=== PATIENT | female | born 1955 | race Caucasian/White ===

== ENCOUNTER → 2016-04-07 | Outpatient (CLI) | payer MEDICARE, OTHER ==
--- NOTE | 2016-04-08 10:36 | MM ---
Reason for exam: screening (asymptomatic). Last mammogram was performed 1 year and 10 months ago. History: Family history of premenopausal breast cancer in sister. Physical Findings: A clinical breast exam by your physician is recommended on an annual basis and results should be correlated with mammographic findings. MG Screening Mammo w CAD Bilateral CC and MLO view(s) were taken. Prior study comparison: June 18, 2014, bilateral MG screening mammo w CAD. July 02, 2004, bilateral screening mammogram. There are scattered fibroglandular densities. No significant changes when compared with prior studies. ASSESSMENT: Benign, BI-RAD 2 RECOMMENDATION: Routine screening mammogram of both breasts in 1 year.
== END | disposition home or self-care (01) ==
LOC: RADMAMWWP 14:40
PROVIDERS: ATTEND Family Medicine
DX: Z12.31 Encounter for screening mammogram for malignant neoplasm of breast (principal)

== ENCOUNTER → 2016-04-12 | Outpatient (CLI) | payer MEDICARE ==
[2016-04-12 13:42] VITALS: BP 162/82; PULSE 70; RESP 20; TEMP 97.6; BMI 33.3
--- NOTE | 2016-04-20 14:27 | P.BASOAP ---
Subjective Principal diagnosis: Morbid obesity Patient doing well. No nausea or vomiting. No heartburn. Denies abdominal pain. Excellent weight loss. 15 pounds since her last visit. Her lab work was reviewed. Her vitamin A and her vitamin B1 are slightly low. Supplements have been prescribed. Some belching at times. Activity level still somewhat poor because of her chronic knee pain. Objective - Vital Signs Vital signs: Vital Signs Temp 97.6 F 04/12/16 13:28 Pulse 70 04/12/16 13:28 Resp 20 04/12/16 13:28 BP 162/82 04/12/16 13:28 Pulse Ox Intake & Output 04/11/16 04/12/16 04/12/16 18:59 06:59 18:59 Weight 80.785 kg - Exam Abdomen: Soft, nontender, nondistended Assessment/Plan (1) Morbid obesity Narrative/Plan: Vitamin supplementation as prescribed. Continue diet and increased activity. Follow-up 6 weeks. Plan: Date: 04/12/16 Initial Weight: 112.661 kg Initial BMI: 46.5 Current Weight: 80.785 kg Current BMI: 33.3 Type of Surgery: Total Volume in Band: Previous Volume: Volume Removed: Volume Added: Band Size:
== END | disposition home or self-care (01) ==
LOC: BARWHC3 13:15
PROVIDERS: ATTEND Surgery
DX: E66.01 Morbid (severe) obesity due to excess calories (principal); E51.9 Thiamine deficiency, unspecified; E50.9 Vitamin A deficiency, unspecified
CPT/HCPCS: 99211

== ENCOUNTER → 2016-05-31 | Outpatient (CLI) | payer MEDICARE, OTHER ==
[2016-05-31 13:14] VITALS: BP 143/70; PULSE 73; RESP 20; TEMP 97.6; BMI 32.4
--- NOTE | 2016-05-31 14:01 | P.BASOAP ---
Subjective Principal diagnosis: Morbid obesity Patient doing well today. She's lost another 5-6 pounds. This is 6 weeks from her last visit. Still having occasional belching. No nausea or vomiting. No longer issues. She is due for six-month lab work next month. She is to see the dietitian today. Objective - Vital Signs Vital signs: Vital Signs Temp 97.6 F 05/31/16 13:08 Pulse 73 05/31/16 13:08 Resp 20 05/31/16 13:08 BP 143/70 05/31/16 13:08 Pulse Ox Intake & Output 05/30/16 05/31/16 05/31/16 18:59 06:59 18:59 Weight 78.608 kg - Exam Abdomen: Soft, nontender, nondistended Assessment/Plan (1) Morbid obesity Narrative/Plan: Continue dietary and exercise regimen. Recheck lab work next month. Dietitian evaluation today. Plan: Date: 05/31/16 Initial Weight: 112.661 kg Initial BMI: 46.5 Current Weight: 78.608 kg Current BMI: 32.4 Type of Surgery: Total Volume in Band: Previous Volume: Volume Removed: Volume Added: Band Size:
== END | disposition home or self-care (01) ==
LOC: BARWHC3 12:50
PROVIDERS: ATTEND Surgery
DX: Z71.3 Dietary counseling and surveillance (principal); E66.01 Morbid (severe) obesity due to excess calories; R14.2 Eructation
CPT/HCPCS: 97803; G0463; 99211

== ENCOUNTER → 2016-07-12 | Outpatient (CLI) | payer MEDICARE, OTHER ==
[2016-07-12 13:08] VITALS: BP 164/93; PULSE 73; TEMP 98.2; BMI 33.0
--- NOTE | 2016-07-12 13:48 | P.BASOAP ---
Subjective Principal diagnosis: Morbid obesity Patient had a small weight gain of 3 pounds. She blames this on increased protein bars. Her belching is improved. No change in the degree of hunger. She is due for blood work today. Objective - Vital Signs Vital signs: Vital Signs Temp 98.2 F 07/12/16 13:05 Pulse 73 07/12/16 13:05 Resp BP 164/93 07/12/16 13:05 Pulse Ox Intake & Output 07/11/16 07/12/16 07/12/16 18:59 06:59 18:59 Weight 79.968 kg - Exam Abdomen: Soft, nontender, nondistended Assessment/Plan (1) Morbid obesity Narrative/Plan: Continue when necessary antiacid therapy. Check 6 months lab work today. Continue exercise and dietary regimen. Plan: Date: 07/12/16 Initial Weight: 112.661 kg Initial BMI: 46.5 Current Weight: 79.968 kg Current BMI: 33.0 Type of Surgery: Total Volume in Band: Previous Volume: Volume Removed: Volume Added: Band Size:
[2016-07-12 14:22] LABS: ALT 60 U/L (9-52); AST 66 U/L (14-36); Alkaline Phosphatase 115 U/L (38-126); Anion Gap 7 mmol/L; Blood Urea Nitrogen 18 mg/dL (7-17); Calcium 9.7 mg/dL (8.4-10.2); Carbon Dioxide 30 mmol/L (22-30); Chloride 105 mmol/L (98-107); Glucose 79 mg/dL (74-99); Iron 93 ug/dL (37-170); Non-African American GFR(MDRD) >60 (>60 ml/min/1.73 sqM); Potassium 4.9 mmol/L (3.5-5.1); Sodium 142 mmol/L (137-145); Total Bilirubin 0.7 mg/dL (0.2-1.3); Total Protein 6.6 g/dL (6.3-8.2)
[2016-07-12 14:40] LABS: CH 29.7; CHCM 32.7; HCT 37.5 % (34.0-46.0); HDW 2.48; HGB 12.5 gm/dL (11.4-16.0); MCH 30.5 pg (25.0-35.0); MCHC 33.3 g/dL (31.0-37.0); MCV 91.4 fL (80.0-100.0); RBC 4.11 m/uL (3.80-5.40); RDW 13.4 % (11.5-15.5); WBC 7.8 k/uL (3.8-10.6)
[2016-07-12 15:29] LABS: Vitamin B12 228 pg/mL (239-931)
== END | disposition home or self-care (01) ==
LOC: BARWHC3 12:53
PROVIDERS: ATTEND Surgery
DX: E66.01 Morbid (severe) obesity due to excess calories (principal); E55.9 Vitamin D deficiency, unspecified
CPT/HCPCS: 80053; 82607; 82746; 83540; 85027; 82306; G0463; 99211

== ENCOUNTER → 2016-08-23 | Outpatient (CLI) | payer MEDICARE, OTHER ==
[2016-08-23 13:16] VITALS: BP 133/63; PULSE 73; TEMP 98.1; BMI 33.7
--- NOTE | 2016-08-23 16:09 | PN ---
DATE OF SERVICE: 08/23/2016 BARIATRIC PROGRESS NOTE CHIEF COMPLAINT: Morbid obesity. INTERVAL HISTORY: The patient did have a slight weight gain of 3-1/2 pounds. She denies dysphagia. No increased hunger. She still blames this on taking in too much protein bars; she says she has about 3 to 4 protein bars per day. She plans to drink more soups and believes that is going to have a positive outcome. The patient had her 6-month labs recently. Her vitamin D and her vitamin B12 are both slightly low. Her liver enzymes are slightly elevated and she plans to discuss this further with her primary care physician. PHYSICAL EXAM: ABDOMEN: Soft, nontender, nondistended. IMPRESSION: Morbid obesity. PLAN: 1. Follow up with PCP regarding elevated liver enzymes. 2. Vitamin B12 and vitamin D supplementation. 3. Follow up in the office in 6 weeks.
== END | disposition home or self-care (01) ==
LOC: BARWHC3 12:54
PROVIDERS: ATTEND Surgery
DX: E66.01 Morbid (severe) obesity due to excess calories (principal)
CPT/HCPCS: 99211

== ENCOUNTER → 2016-10-25 | Outpatient (CLI) | payer MEDICARE, OTHER ==
[2016-10-25 13:11] VITALS: BP 147/68; PULSE 63; TEMP 98; BMI 34.7
--- NOTE | 2016-10-25 14:49 | P.BASOAP ---
Subjective Principal diagnosis: Morbid obesity Patient had a slight weight gain this visit. Approximate 5 pounds. She still believes this is related to her ingesting 4-5 protein bars per day. She plans to take this out of her diet for the most part. She has lost a total of 65 pounds. She was told by her primary care physician that her liver enzyme elevation is stable and no further workup was required. Objective - Vital Signs Vital signs: Vital Signs Temp 98 F 10/25/16 13:10 Pulse 63 10/25/16 13:10 Resp BP 147/68 10/25/16 13:10 Pulse Ox Intake & Output 10/24/16 10/25/16 10/25/16 18:59 06:59 18:59 Weight 83.915 kg - Exam Abdomen: Soft, nontender, nondistended Assessment/Plan (1) Morbid obesity Narrative/Plan: Monitor protein and carbohydrates intake. Continue exercise regimen. Follow- up visit in 4-6 weeks and we'll check one year labs at that time. Plan: Date: 10/25/16 Initial Weight: 112.661 kg Initial BMI: 46.5 Current Weight: 83.915 kg Current BMI: 34.7 Type of Surgery: Total Volume in Band: Previous Volume: Volume Removed: Volume Added: Band Size:
== END | disposition home or self-care (01) ==
LOC: BARWHC3 12:49
PROVIDERS: ATTEND Surgery
DX: E66.01 Morbid (severe) obesity due to excess calories (principal)
CPT/HCPCS: 97803; G0463; 99211

== ENCOUNTER → 2016-12-13 | Outpatient (CLI) | payer MEDICARE, OTHER ==
[2016-12-13 14:15] VITALS: BP 159/85; PULSE 70; TEMP 98.4; BMI 36.8
[2016-12-13 15:48] LABS: AST 31 U/L (14-36); Anion Gap 8 mmol/L; Blood Urea Nitrogen 23 mg/dL (7-17); Calcium 9.7 mg/dL (8.4-10.2); Carbon Dioxide 29 mmol/L (22-30); Chloride 103 mmol/L (98-107); Glucose 83 mg/dL (74-99); Iron 128 ug/dL (37-170); Non-African American GFR(MDRD) >60 (>60 ml/min/1.73 sqM); Potassium 4.6 mmol/L (3.5-5.1); Sodium 140 mmol/L (137-145); Total Bilirubin 0.5 mg/dL (0.2-1.3); Total Protein 6.4 g/dL (6.3-8.2)
[2016-12-13 15:49] LABS: ALT 38 U/L (9-52); Alkaline Phosphatase 120 U/L (38-126); Vitamin B12 802 pg/mL (239-931)
[2016-12-13 16:27] LABS: CH 29.9; CHCM 33.3; HCT 39.6 % (34.0-46.0); HDW 2.45; HGB 13.3 gm/dL (11.4-16.0); MCH 30.2 pg (25.0-35.0); MCHC 33.5 g/dL (31.0-37.0); MCV 90.3 fL (80.0-100.0); Mean Platelet Volume 6.9; RBC 4.39 m/uL (3.80-5.40); RDW 12.5 % (11.5-15.5); WBC 6.8 k/uL (3.8-10.6)
== END ==
LOC: BARWHC3 13:10
PROVIDERS: ATTEND Surgery
DX: Z09 Encounter for follow-up examination after completed treatment for conditions other than malignant neoplasm (principal); Z98.84 Bariatric surgery status; E66.01 Morbid (severe) obesity due to excess calories; E55.9 Vitamin D deficiency, unspecified; K90.9 Intestinal malabsorption, unspecified
CPT/HCPCS: 84425; 80053; 82607; 83540; 85027; 82306; G0463; 99211

== ENCOUNTER → 2017-06-13 | Outpatient (CLI) | payer MEDICARE, OTHER ==
[2017-06-13 13:29] VITALS: BP 128/83; PULSE 69; RESP 16; TEMP 97.9; BMI 35.9
--- NOTE | 2017-06-13 16:32 | P.BASOAP ---
Subjective Progress Note Date: 06/13/17 Principal diagnosis: Morbid obesity Patient returns today for reevaluation. Her weight is actually increased by 2 pounds since her last visit. She has had more social issues going on at home. Her father is ill. She has had some issues with her eyesight also. She doesn' t believe she is eating much. She has mild reflux at times. She is not taking her antiacids. She says she may resume that. No vomiting. Activity is somewhat less lately. Objective - Vital Signs Vital signs: Vital Signs Temp 97.9 F 06/13/17 13:27 Pulse 69 06/13/17 13:27 Resp 16 06/13/17 13:27 BP 128/83 06/13/17 13:27 Pulse Ox Intake & Output 06/12/17 06/13/17 06/13/17 18:59 06:59 18:59 Weight 87.09 kg - Exam Abdomen: Soft, nontender, nondistended Assessment/Plan (1) Morbid obesity Narrative/Plan: Continue dietary recommendations. Increase activity levels. She will consider restarting her antiacids. Follow-up exam 3 months. Plan: Date: 06/13/17 Initial Weight: 112.661 kg Initial BMI: 46.5 Current Weight: 87.09 kg Current BMI: 35.9 Type of Surgery: Total Volume in Band: Previous Volume: Volume Removed: Volume Added: Band Size:
== END | disposition home or self-care (01) ==
LOC: BARWHC3 12:49
PROVIDERS: ATTEND Surgery
DX: E66.01 Morbid (severe) obesity due to excess calories (principal); Z68.35 Body mass index [BMI] 35.0-35.9, adult
CPT/HCPCS: 99211

== ENCOUNTER → 2018-05-16 | Outpatient (CLI) | payer MEDICARE ==
--- NOTE | 2018-05-17 13:50 | MM ---
Reason for exam: screening (asymptomatic). Last mammogram was performed 2 years and 1 month ago. History: Family history of premenopausal breast cancer in sister. Physical Findings: A clinical breast exam by your physician is recommended on an annual basis and results should be correlated with mammographic findings. MG 3D Screening Mammo W/Cad Bilateral CC and MLO view(s) were taken. Prior study comparison: April 07, 2016, bilateral MG screening mammo w CAD. June 18, 2014, bilateral MG screening mammo w CAD. There are scattered fibroglandular densities. Benign appearing bilateral calcifications. No suspicious abnormality. No significant changes when compared with prior studies. ASSESSMENT: Benign, BI-RAD 2 RECOMMENDATION: Routine screening mammogram of both breasts in 1 year.
== END | disposition home or self-care (01) ==
LOC: RADMAMWWP 11:01
PROVIDERS: ATTEND Family Medicine
DX: Z12.31 Encounter for screening mammogram for malignant neoplasm of breast (principal)
CPT/HCPCS: 77063; 77067

== ENCOUNTER → 2019-03-21 | Outpatient (CLI) | payer MEDICARE ==
--- NOTE | 2019-03-21 17:03 | XR ---
EXAMINATION TYPE: XR wrist complete LT DATE OF EXAM: 03/21/2019 COMPARISON: None HISTORY: Wrist pain TECHNIQUE: 4 views FINDINGS: There is moderate narrowing and spurring at the first carpometacarpal joint. There is some narrowing of the scaphoid lunate joint space. There is narrowing of the scaphoid trapezium joint spac e. I see no fracture nor dislocation. There are no erosions. 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 No fracture seen.
--- NOTE | 2019-03-21 17:04 | XR ---
EXAMINATION TYPE: XR lumbosacral spine min 4V DATE OF EXAM: 03/21/2019 COMPARISON: NONE HISTORY: Back pain TECHNIQUE: 5 views FINDINGS: Lumbar vertebra have normal alignment. Posterior elements are intact. Sacroiliac joints richy ear intact. There is no evidence of a fracture. There is some mild spurring of the endplates. IMPRESSION: Multilevel mild spondylotic changes. No fracture seen.
--- NOTE | 2019-03-21 17:06 | XR ---
EXAMINATION TYPE: XR sacroiliac joint comp BILAT DATE OF EXAM: 03/21/2019 COMPARISON: NONE HISTORY: Back pain TECHNIQUE: 4 views FINDINGS: Sacroiliac joints are normal. I see no fracture. There are no erosions. IMPRESSION: Negative exam. No evidence of sacroiliitis.
== END | disposition home or self-care (01) ==
LOC: RADXRMAIN 15:45
PROVIDERS: ATTEND Family Medicine
DX: M47.817 Spondylosis without myelopathy or radiculopathy, lumbosacral region (principal); M19.032 Primary osteoarthritis, left wrist
CPT/HCPCS: 72110; 72202

== ENCOUNTER → 2020-02-03 | Outpatient (CLI) | payer MEDICARE ==
--- NOTE | 2020-02-03 12:08 | BD ---
EXAMINATION TYPE: Axial Bone Density DATE OF EXAM: 02/03/2020 COMPARISON: 02/17/2015 CLINICAL HISTORY: Postmenopausal female. Height: 60.7 IN Weight: 218 LBS FRAX RISK QUESTIONS: Family History (Parent hip fracture): YES MOTHER History of Fracture in Adulthood: LT THUMB FX AGE 53 RISK FACTORS HISTORY OF: Family History of Osteoporosis: MOTHER AND SISTER Active: MODERATE Diet low in dairy products/other sources of calcium: YES Postmenopausal woman: AGE 49 Lost more than 2 inches in height since high school: YES 2 04/06 IN MEDICATIONS: Additional Medications: ADVIL, BLOOD PRESSURE MEDS, CHOLESTEROL MEDS, PRESERVISION FOR EYES, EXAM MEASUREMENTS: Bone mineral densitometry was performed using the [employer] System. Bone mineral density as measured about the Lumbar spine is: ----- L1-L4(G/cm2): 1.047 T Score Values are as follows: ----- L2: -1.1 ----- L3: -0.5 ----- L4: -1.1 ----- L1-L4: -1.5 Bone mineral density has: Decreased -2.9% since study of: 02/17/2015 Bone mineral density about the R hip (g/cm2): 0.800 Bone mineral density about the L hip (g/cm2): 0.637 T Score values are as follows: -----R Neck: -1.7 -----L Neck: -2.9 -----R Total: -2.3 -----L Total: -2.2 Bone mineral density has: Decreased -17.2% since study of: 02/17/2015 IMPRESSION: Osteoporosis (T Score less than -2.5) is now present femoral neck level left hip. Interval deminerali zation progression from 2015 study noted. There is now increased fracture risk and therapy is usually indicated based on age. Re-Screen 1-2 years. NOTE: T-SCORE=SD OF THE YOUNG ADULT MEAN.
--- NOTE | 2020-02-05 10:45 | MM ---
Reason for exam: screening (asymptomatic). Last mammogram was performed 1 year and 9 months ago. History: Family history of premenopausal breast cancer in sister. Physical Findings: A clinical breast exam by your physician is recommended on an annual basis and results should be correlated with mammographic findings. MG 3D Screening Mammo W/Cad Bilateral CC and MLO view(s) were taken. Prior study comparison: May 16, 2018, bilateral MG 3d screening mammo w/cad. April 07, 2016, bilateral MG screening mammo w CAD. There are scattered fibroglandular densities. Finding #1: There are typically benign round oval masses in both breasts. Finding #2: There are typically benign calcifications in both breasts. No significant changes in finding since May 16, 2018 and April 07, 2016. ASSESSMENT: Benign, BI-RAD 2 RECOMMENDATION: Routine screening mammogram of both breasts in 1 year.
== END | disposition home or self-care (01) ==
LOC: RADMAMWWP 10:13
PROVIDERS: ATTEND Family Medicine
DX: Z12.31 Encounter for screening mammogram for malignant neoplasm of breast (principal); Z13.820 Encounter for screening for osteoporosis; M81.0 Age-related osteoporosis without current pathological fracture
CPT/HCPCS: 77063; 77067; 77080

== ENCOUNTER → 2020-05-28 | Outpatient (CLI) | payer MEDICARE ==
[~2020-05-28] MED LIST: SODIUM CHLORIDE 0.9% 500 ML 500 ML in EMPTY BAG 1 BAG IV PRN; ZOLEDRONIC ACID 5 MG in SODIUM CHLORIDE 0.9% 100 ML IV NR
[2020-05-28 10:02] VITALS: BP 140/66; PULSE 83; RESP 16; TEMP 98
== END | disposition home or self-care (01) ==
LOC: PROCWHC3 09:53
PROVIDERS: ATTEND Internal Medicine
DX: M81.0 Age-related osteoporosis without current pathological fracture (principal)
CPT/HCPCS: 96365; J3489

== ENCOUNTER → 2021-08-02 | Outpatient (CLI) | payer MEDICARE ==
[2021-08-02 11:54] VITALS: BP 154/92; PULSE 88; RESP 16; TEMP 97.8
== END | disposition home or self-care (01) ==
LOC: PROCWHC3 11:21
PROVIDERS: ATTEND Internal Medicine
DX: M81.0 Age-related osteoporosis without current pathological fracture (principal)
CPT/HCPCS: 96365; J3489

== ENCOUNTER → 2021-11-10 | Outpatient (CLI) | payer MEDICARE ==
--- NOTE | 2021-11-10 11:58 | US ---
EXAMINATION TYPE: US extremity nonvasc mass RT DATE OF EXAM: 11/10/2021 COMPARISON: NONE CLINICAL HISTORY: R22.9 LOCALIZED SWELLING, MASS AND LUMP,. Right upper vazquez area of swelling Right leg at patient's area of concern: appears wnl Hematoma is not identified. IMPRESSION: 1. No ultrasound abnormality at the area of swelling within the patient's leg
== END | disposition home or self-care (01) ==
LOC: RADUSWWP 10:20
PROVIDERS: ATTEND Family Medicine
DX: R22.9 Localized swelling, mass and lump, unspecified (principal)

== ENCOUNTER → 2022-03-21 | Outpatient (CLI) | payer MEDICARE ==
[2022-03-21 14:45] LABS: Partial Thromboplastin Time 22.9 sec (22.0-30.0)
[2022-03-21 18:29] LABS: Prothrombin Time 10.7 sec (9.0-12.0)
[2022-03-21 18:30] LABS: HCT 37.8 % (37.2-46.3); HGB 12.1 g/dL (12.0-15.0); MCV 90.6 fL (80.0-97.0); Mean Platelet Volume 10.4 fL (9.5-12.2); NRBC Per 100 WBC 0 /100 WBCS (0.0-0.0); Platelet Count 300 X 10*3/uL (140-440); RBC 4.17 X 10*6/uL (4.10-5.20); WBC 5.28 X 10*3/uL (4.50-10.00)
[2022-03-21 19:01] LABS: African American GFR (CKD) 108.8 (60.0-200.0); Albumin 3.9 g/dL (3.8-4.9); Albumin/Globulin Ratio 2.28 (1.60-3.17); BUN/Creat Ratio 17.43 Ratio (12.00-20.00); Blood Urea Nitrogen 10.6 mg/dL (9.0-27.0); Calcium 9.1 mg/dL (8.7-10.3); Carbon Dioxide 27.7 mmol/L (20.0-27.5); Globulin 1.7 g/dL (1.6-3.3); Non-African American GFR(CKD) 93.9 (60.0-200.0); Potassium 4.1 mmol/L (3.5-5.5); Total Bilirubin 0.3 mg/dL (0.30-1.20); Total Protein 5.5 g/dL (6.2-8.2)
[2022-03-21 20:37] LABS: Appearance,Urine Cloudy (Clear); Bilirubin,Urine Negative (Negative); Blood,Urine Negative (Negative); Color,Urine Dark Yellow (Yellow); Ketones,Urine Trace mg/dL (Negative); Nitrite,Urine Positive (Negative); Specific Gravity,Urine 1.034 (1.001-1.030)
[2022-03-21 22:33] LABS: Bacteria,Urine 4+ /HPF (None Seen); Calcium Oxalate Crystals,Urine Present /LPF (None Seen); Mucus,Urine Present /LPF (None Seen)
== END | disposition home or self-care (01) ==
LOC: LABPAT 12:56
PROVIDERS: ATTEND Orthopaedic Surgery
DX: Z01.818 Encounter for other preprocedural examination (principal); I49.3 Ventricular premature depolarization; M17.11 Unilateral primary osteoarthritis, right knee; R94.31 Abnormal electrocardiogram [ECG] [EKG]
CPT/HCPCS: 80053; 81001; 85027; 85610; 85730; 87070; 93005

== ENCOUNTER 2022-04-11 07:22 | Day surgery (SDC) | payer MEDICARE ==
[~2022-04-11 07:22] MED LIST changes: +ACETAMINOPHEN TAB 500 MG TAB PO PRN; +DEXAMETHASONE SOD PHOSPHATE 4 MG/ML 1 ML VIAL IV ONE; +GABAPENTIN 300 MG CAP PO PRN; +MELOXICAM 7.5 MG TAB PO PRN; +MIDAZOLAM 2 MG/2 ML VIAL IV PRN; +ONDANSETRON 4 MG/2 ML VIAL IVP ONE; -SODIUM CHLORIDE 0.9% 500 ML 500 ML in EMPTY BAG 1 BAG IV PRN; +TRANEXAMIC ACID IN NACL,ISO-OS 1,000 MG in SALINE 1 100ML.BAG IVPB PRN; -ZOLEDRONIC ACID 5 MG in SODIUM CHLORIDE 0.9% 100 ML IV NR
[2022-04-11] MEDS: LACTATED RINGERS 1,000 ML IV SCH ×3 (08:20→20:33)
[2022-04-11] MEDS ORDERED: LIDOCAINE 2% INJ 20 MG/ML (2 ML VIAL) ONE (09:27)
[2022-04-11] MEDS ORDERED: PROPOFOL 10 MG/ML 20 ML VIAL IV ONE (09:27)
[2022-04-11] MEDS ORDERED: fentaNYL (PF) 50 MCG/ML 2 ML AMP ONE (09:27)
[2022-04-11] MEDS ORDERED: SUCCINYLCHOLINE CHLORIDE 200 MG/10 ML VIAL IV ONE (09:27)
[2022-04-11] MEDS ORDERED: MIDAZOLAM 2 MG/2 ML VIAL ONE (09:27)
[2022-04-11] MEDS ORDERED: ROPIVACAINE 5 MG/ML 30 ML VIAL ONE (09:27)
[2022-04-11] MEDS ORDERED: SODIUM CHLORIDE 0.9% (PF) 10 ML VIAL ONE (09:27)
[2022-04-11] MEDS ORDERED: TRANEXAMIC ACID IN NACL,ISO-OS 1,000 MG/100 ML BAG ONE (09:27)
[2022-04-11] MEDS ORDERED: NEOSTIGMINE 1 MG/ML 10 ML VIAL ONE (09:27)
[2022-04-11] MEDS ORDERED: ROCURONIUM 10 MG/ML (5 ML VIAL) IV ONE (09:27)
[2022-04-11] MEDS ORDERED: GLYCOPYRROLATE 0.2 MG/ML 2 ML VIAL ONE (09:27)
[2022-04-11] MEDS ORDERED: ceFAZolin 1,000 MG in SODIUM CHLORIDE 0.9% 1,000 ML IRRIGATION ONE (09:32)
--- NOTE | 2022-04-11 10:50 | P.ANPRN ---
Procedure Note - Anesthesia - Nerve Block Performed Right Adductor Canal Infusion Time Out Performed: Yes (0836) Date of Procedure: 04/11/22 Procedure Start Time: 08:37 Procedure Stop Time: 08:42 Location of Patient: PreOp Indication: Acute Post-Operative Pain, Requested by Surgeon Specifically requested for management of pain by DrMeg: Wayne Sampson Sedation Type: Sedate with meaningful contact maintained Preparation: Sterile Prep Position: Supine Catheter: Indwelling Needle Types: Pajunk Needle Gauge: 21 Ultrasound used to visualize needle placement: Yes Ultrasound used to observe medication spread: Yes Injectate: 0.5% Ropivacaine (see comment for volume) (15cc + 5cc nacl pf) Blood Aspirated: No Pain Paresthesia on Injection Noted: No Resistance on Injection: Normal Image Stored and Saved: Yes Events: Uneventful and Well Tolerated
[2022-04-11] MEDS ORDERED: LACTATED RINGERS 1,000 ML IV ONE (10:51)
--- NOTE | 2022-04-11 10:51 | P.ANPRN ---
Procedure Note - Anesthesia - Nerve Block Performed Right iPack Single Time Out Performed: Yes (0836) Date of Procedure: 04/11/22 Procedure Start Time: 08:43 Procedure Stop Time: 08:47 Location of Patient: PreOp Indication: Acute Post-Operative Pain, Requested by Surgeon Specifically requested for management of pain by DrMeg: Wayne Sampson Sedation Type: Sedate with meaningful contact maintained Preparation: Sterile Prep Position: Supine Catheter: None Needle Types: Pajunk Needle Gauge: 21 Ultrasound used to visualize needle placement: Yes Ultrasound used to observe medication spread: Yes Injectate: 0.5% Ropivacaine (see comment for volume) (15cc+ 5cc nacl pf) Blood Aspirated: No Pain Paresthesia on Injection Noted: No Resistance on Injection: Normal Image Stored and Saved: Yes Events: Uneventful and Well Tolerated
--- NOTE | 2022-04-11 10:51 | P.OP ---
Date of Procedure: 04/11/22 Preoperative Diagnosis: Severe osteoarthritis right knee Postoperative Diagnosis: Severe osteoarthritis right knee Procedure(s) Performed: Right total knee arthroplasty Implants: [employer] Journey II CR Oxinium cruciate retaining femoral component size 5, right [employer] Journey nonporous tibial baseplate size 4, right [employer] Journey II, XLPE Deep Dished articular insert, size 9 mm, Size 3- 4, right [employer] Journey Mildred II resurfacing patellar component, oval, 29 mm All components were cemented using Palacos R bone cement The articulation is Oxinium on polyethylene Anesthesia: SY Surgeon: Wayne Sampson Window Glazier #1: Meme Feliciano Estimated Blood Loss (ml): 30 Pathology: other (Bone and cartilage) Condition: stable Disposition: PACU Indications for Procedure: This is a 66-year-old female with a history of right knee osteoarthritis. The patient's knee is end-stage, and conservative management has failed. The operation of knee replacement has been discussed at length in the office, as well as potential risks and complications. These are inclusive of, but not limited to: Infection, bleeding, scarring, discomfort, stiffness, blood vessel and nerve damage, need for further surgery, failure to relieve symptoms, persistence, recurrence, or worsening of problems, loosening, dislocation, wear, blood clot, pulmonary embolism, , gait dysfunction, stiffness, and other ri sks as discussed in the office. Patient elects to proceed and the consent form has been signed. Operative Findings: The operative findings are consistent with severe osteoarthritis of the right knee Description of Procedure: Patient was seen in the preoperative area and the consent was reviewed and the operative site was marked with a skin marker. The patient verified the procedure and the operative site. An adductor canal pain catheter and an IPACK block were placed by anesthesia in the preoperative area. The patient was then brought to the operating room and positioned on the operating room table in the supine position. Preoperative antibiotics and a gram of transexamic acid were given intravenously. A spinal anesthetic was attempted, but unable to be obtained. A general anesthetic was then administered by the anesthesia department. Care was taken to make sure that all pressure points were adequately padded. A tourniquet was placed on the upper thigh and the lower extremity was prepped with ChloraPrep and draped in usual sterile fashion. A universal timeout was then performed which confirmed the patient's name, surgical site, ALLERGIES, and consent. The lower extremity was then exsanguinated and tourniquet was inflated to 250 mmHg. A standard anterior midline approach to the knee was performed. The skin and subcutaneous tissue were sharply dissected down to the patellar tendon. A medial parapatellar arthrotomy was then performed. The knee was then extended, the patellar was everted, and the knee was flexed. The infra-patellar fat pad was removed in order to enhance exposure. The anterior horns of both menisci were excised, and a release was performed to the posterior medial aspect of the knee. On gross visual inspection, there was complete loss of articular cartilage in the medial and patellofemoral joint spaces. There was also significant cartilage damage in the lateral compartment. There were multiple periarticular osteophytes globally about the knee which were then removed with a Ronguer. The femoral canal was then opened with the 9.5 mm intramedullary drill. The 8 mm intramedullary sherman was then inserted into the femoral canal with the distal femoral cutting guide set for 5 of valgus. The distal femoral cutting block was then pinned in place. The intramedullary sherman was then removed, and the distal femur was then cut. The cutting block was then removed and the cut was checked for symmetry. The resected bone was then measured to confirm the appropriate distal femoral resection. Next, the sizing guide was then placed and set for 3 external rotation based off of the epicondylar axis and Wrangell's line. Pins were then placed and the drill holes, and the femur was sized with the sizing stylus. The pins were then removed, and the sizing guide was then removed. The spikes of the appropriate size femoral block was then placed into the predrilled holes, and malleted into place. Two 45 mm pins were then placed into the fixation holes on the cutting block. An aspen wing was then used to ensure there would be no notching with the anterior cut. The anterior condyles were cut without notching. The anterior chord cut was then performed, followed by the posterior cut, posterior chamfer cut, and the anterior chamfer cut. The collateral ligaments were protected during the entire process. The cutting block was then removed. Any remaining bone and osteophytes were removed from the femur with a Ronguer. Attention was then directed to the tibia. The remaining ACL was removed with a Ronguer, and the tibia was then gently subluxed forward with a large bent knee retractor. Any remaining menisci were excised. The posterior lateral corner was cauterized in order to coagulate the lateral geniculate artery. The extra medullary tibial cutting guide was then placed, set for the appropriate rotation, slope, and depth of resection. The proximal tibia cutting guide was then pinned in place. Proximal tibia was then cut and sized. A curved osteotome was then used to remove any posterior osteophytes from the distal femur. The femoral trial was placed. A narrow saw blade was then used to remove the anterior intracondylar femoral bone. The CR notch trial was then placed. The tibial trial was placed with the appropriate-sized insert. The knee was able to fully extend and flex to 130 and was stable throughout all range of motion. The knee was then extended and the patella was everted. Patella was then measured, and then using an osteotomy guide, the patella was cut at the appropriate level. The patellar component was sized. The patellar drill guide was placed and the patella was drilled. The patella trial was then placed. The knee was then taken through range of motion with the patella trial and the patella tracked normally using the no thumbs technique. The patella trial was then removed. The knee was then flexed and lug holes were drilled through the femoral trial and the femoral trial was then removed. The tibial was then re- exposed, and the tibial broach guide was then pinned in place after it was set for the appropriate rotation to allow for the most coverage without overhang. The tibia was then reamed and broached. The femoral canal was plugged with autologous bone. The cut surfaces of bone were then irrigated with pulsatile lavage. The knee was also irrigated with Irrisept solution. The components were then opened, the cement was mixed. Cement was placed on the backside of the femoral, tibial, and patellar components. Cement was then applied to the tibial surface and pressurized into the surface using finger pressurization technique. The tibial component was then applied and excess cement was removed after it was impacted securely noted to be flush with the cut surface. In similar fashion, the cement was applied to the cut femoral surface, pressurized and using finger pressurization the component was impacted in place. Excess cement was removed. The polyethylene spacer was then implanted and locked into position. Patellar component was then applied in a similar technique and the patellar clamp was used to hold patella in place while the cement hardened. The knee was held in full extension while the cement hardened. Once the cement had fully hardened, the knee was reinspected. Any other cement extrusion was removed the final range of motion testing showed range of motion from 0-130 with excellent stability, both medial and laterally and appropriate alignment of the leg. Patella tracked normally[default value] After the cemented hardened, the tourniquet was released and hemostasis was obtained. A second gram of transexamic acid was given intravenously. The knee was again irrigated. The knee was again taken through range of motion and found to be stable throughout all range of motion of 0-130, and the patella tracked normally. The fascia was then closed with 0 Vicryl followed by #2 strata fix suture. The subcutaneous tissue was closed with 3-0 Vicryl and 3-0 strata fix. Exofin glue was used for the skin and placed with the knee in flexion. After th e glue had dried, and Optafoam silver impregnated dressing was applied. A lightly compressive dressing was applied using web roll and Eleuterio wrap. Patient was then transferred to the stretcher and taken to recovery room in stable condition. Sponge and needle counts were correct. The call center assistant MICHELLE Rivera was required due the complexity surgery and the need for a skilled surgical first assistant. She assisted in positioning, draping, retraction, and closure of the wound.
[2022-04-11] MEDS ORDERED: NA PHOS,M-B/NA PHOS,DI-BA 133 ML ENEMA RECTAL PRN (11:21)
[2022-04-11] MEDS ORDERED: bisacodyL 10 MG SUPP RECTAL PRN (11:21)
[2022-04-11] MEDS ORDERED: HYDROcodone/APAP 5-325MG 1 EACH TAB PO PRN (11:21)
[2022-04-11] MEDS ORDERED: ONDANSETRON 4 MG/2 ML VIAL IVP PRN (11:21)
[2022-04-11] MEDS ORDERED: HYDROmorphone 0.5 MG/0.5 ML SYRINGE IVP PRN ×3 (11:21)
[2022-04-11] MEDS ORDERED: NALOXONE 0.4 MG/ML 1 ML VIAL IV PRN (11:21)
[2022-04-11] MEDS ORDERED: MAGNESIUM HYDROXIDE 2,400 MG/10 ML CUP PO PRN (11:21)
[2022-04-11] MEDS: HYDROmorphone 0.5 MG/0.5 ML SYRINGE IVP PRN ×3 (11:42→12:29)
[2022-04-11] MEDS ORDERED: ROPIVACAINE 0.2%-NS ON-Q PUMP 2 MG/ML EACH MISCELLANE ONE (11:45)
--- NOTE | 2022-04-11 13:29 | XR ---
EXAMINATION TYPE: XR knee limited RT DATE OF EXAM: 04/11/2022 CLINICAL HISTORY: Right knee pain and arthritis status post total knee replacement. TECHNIQUE: Portable AP and crosstable lateral views of the right knee are obtained immediately posto peratively. COMPARISON: None FINDINGS: Metallic hardware from total right knee arthroplasty is seen and appears satisfactory in a lignment and position. There is evidence of recent surgery with diffuse subcutaneous gas and soft ti ssue swelling noted. IMPRESSION: METALLIC HARDWARE FROM TOTAL RIGHT KNEE ARTHROPLASTY IS SATISFACTORY IN ALIGNMENT.
[2022-04-11] MEDS: HYDROcodone/APAP 7.5-325MG 1 EACH TAB PO PRN (16:54)
[2022-04-11] MEDS: LOSARTAN 25 MG TAB PO SCH (16:54)
[2022-04-11] MEDS: ASPIRIN 325 MG TAB PO SCH (20:31)
[2022-04-11] MEDS ORDERED: PRAVASTATIN SODIUM 20 MG TAB PO SCH (21:00)
[2022-04-11] MEDS ORDERED: SENNOSIDES-DOCUSATE SODIUM 1 EACH TAB PO SCH (21:00)
[2022-04-11] MEDS: VIT A,C & E-LUTEIN-MINERALS 1 EACH TAB PO SCH (21:05)
[2022-04-11] MEDS ORDERED: TEMAZEPAM 15 MG CAP PO PRN (22:00)
[2022-04-12] MEDS: LACTATED RINGERS 1,000 ML IV SCH ×2 (00:39→07:54)
[2022-04-12 07:15] VITALS: BP 144/65; PULSE 82; RESP 17; TEMP 98.4
--- NOTE | 2022-04-12 08:20 | P.CONS ---
History of Present Illness - Reason for Consult Consult date: 04/11/22 - History of Present Illness This is a 66 year old female who follows with Dr. Mayberry. Medical history of hypertension, hyperlipidemia, gastric sleeve and osteoarthritis with history of total left knee in 2016. Patient presents to the hospital for planned right total knee arthroplasty with Dr. Hurst. She is evaluated on the medical floor today postoperatively. She is on room air, blood pressure 149/83, afebrile. He art rate is in the 50s-60s. She has been started on aspirin 325 twice a day for DVT prophylaxis by primary services. Pain management, bowel regimen are in place. Recommend to continue with losartan. Recommending to hold Metoprolol Succinate 50 mg daily at this time secondary to bradycardia. Recommend telemetry monitoring overnight and consider resuming beta freddie at low dose. Preoperative labs show a sodium of 146 and will check a BMP in the morning REVIEW OF SYSTEMS: CONSTITUTIONAL: No fever, no malaise, no fatigue. HEENT: No recent visual problems or hearing problems. Denied any sore throat. CARDIOVASCULAR: No chest pain, orthopnea, PND, no palpitations, no syncope. PULMONARY: No shortness of breath, no cough, no hemoptysis. GASTROINTESTINAL: No diarrhea, no nausea, no vomiting, no abdominal pain. NEUROLOGICAL: No headaches, no weakness, no numbness. HEMATOLOGICAL: Denies any bleeding or petechiae. GENITOURINARY: Denies any burning micturition, frequency, or urgency. MUSCULOSKELETAL/RHEUMATOLOGICAL: Denies any joint pain, swelling, or any muscle pain. ENDOCRINE: Denies any polyuria or polydipsia. The rest of the 14-point review of systems is negative. PHYSICAL EXAMINATION: GENERAL: The patient is alert and oriented x3, not in any acute distress. Well developed, well nourished. HEENT: Pupils are round and equally reacting to light. EOMI. No scleral icterus. No conjunctival pallor. Normocephalic, atraumatic. No pharyngeal erythema. No thyromegaly. CARDIOVASCULAR: S1 and S2 present. No murmurs, rubs, or gallops. PULMONARY: Chest is clear to auscultation, no wheezing or crackles. ABDOMEN: Soft, nontender, nondistended, normoactive bowel sounds. No palpable organomegaly. MUSCULOSKELETAL: No joint swelling or deformity. EXTREMITIES: No cyanosis, clubbing, or pedal edema. Post surgical right knee. NEUROLOGICAL: Gross neurological examination did not reveal any focal deficits. SKIN: No rashes. Assessment plan Assessment Postoperative day 0 right total knee arthroplasty Severe osteoarthritis Sinus bradycardia Hypertension Hyperlipidemia History gastric sleeve Obesity GI prophylaxis DVT prophylaxis Full Code Plan Recommend to hold Toprol XL at this time Telemetry monitoring Resume all other home medications Pain management as per primary Continue Bowel Regimen Thank you for this consultation The impression and plan of care has been dictated by Chandrika Torres, Nurse Practitioner as directed. Dr. Rex MD I have performed a history and physical examination and medical decision making of this patient, discussed the same with the dictator, and agree with the dictators assessment and plan as written, documented as a scribe. Based on total visit time, I have performed more than 50% of this visit. Past Medical History Past Medical History: Eye Disorder, Hyperlipidemia, Hypertension, Osteoarthritis (OA) Additional Past Medical History / Comment(s): varicose veins, hx. frequent bronchitis years ago History of Any Multi-Drug Resistant Organisms: None Reported Past Surgical History: Bariatric Surgery, Cholecystectomy, Joint Replacement, Orthopedic Surgery, Tubal Ligation Additional Past Surgical History / Comment(s): arthroscopic-dion knees and ankles, dion ganglion cysts, left knee replaced August 2015, gastric sleeve 11/23/15, cyst removed left hand Past Anesthesia/Blood Transfusion Reactions: Postoperative Nausea & Vomiting (PONV) Additional Past Anesthesia/Blood Transfusion Reaction / Comm: PONV after last arthroscopy Smoking Status: Never smoker - Past Family History Brother(s) Family Medical History: CVA/TIA, Diabetes Mellitus Father Family Medical History: Cancer, Diabetes Mellitus Sister(s) Family Medical History: Cancer, Fibromyalgia Mother Family Medical History: Dementia, Deep Vein Thrombosis (DVT) Medications and Allergies Home Medications Medication Instructions Recorded Confirmed Type Metoprolol Succinate (ER) [Toprol 50 mg PO DAILY 05/28/20 04/11/22 History XL] Ergocalciferol [Vitamin D2 (1250 1,250 mcg PO WE 04/07/22 04/11/22 History Mcg = 43834 Iu)] Ibuprofen [Advil] 200 - 400 mg PO Q6HR PRN 04/07/22 04/11/22 History Losartan Potassium [Cozaar] 25 mg PO DAILY 04/07/22 04/11/22 History Pravastatin Sodium [Pravachol] 20 mg PO HS 04/07/22 04/11/22 History Vit C/E/Zn/Coppr/Lutein/Zeaxan 1 each PO BID 04/07/22 04/11/22 History [Preservision Areds 2 Softgel] Aspirin 325 mg PO BID #60 tab 04/11/22 Rx Celecoxib [CeleBREX] 200 mg PO DAILY #30 capsule 04/11/22 Rx HYDROcodone/APAP 7.5-325MG [Ward 1 - 2 tab PO Q6HR PRN #32 tab 04/11/22 Rx 7.5-325] Ondansetron Odt [Zofran Odt] 4 mg PO Q8HR PRN #14 tab 04/11/22 Rx Sennosides-Docusate Sodium 1 tab PO BID #60 tablet 04/11/22 Rx [Senokot-S] Allergies Allergy/AdvReac Type Severity Reaction Status Date / Time No Known Allergies Allergy Verified 04/11/22 07:52 Physical Exam Vitals: Vital Signs Temp Pulse Resp BP Pulse Ox 04/11/22 14:21 98.7 F 62 17 149/83 98 04/11/22 14:00 98.3 F 53 L 17 150/84 98 04/11/22 13:42 55 L 17 130/63 100 04/11/22 13:21 97.7 F 60 16 151/81 96 04/11/22 13:05 50 L 16 111/52 100 04/11/22 12:50 52 L 16 97/59 99 04/11/22 12:35 55 L 16 100/52 99 04/11/22 12:21 98.5 F 58 L 16 148/86 98 04/11/22 12:20 52 L 16 118/62 99 04/11/22 12:05 48 L 16 143/59 100 04/11/22 11:49 51 L 16 136/64 100 04/11/22 11:34 54 L 16 139/71 100 04/11/22 11:21 98.3 F 53 L 17 150/84 98 04/11/22 11:19 97.2 F L 81 16 159/72 96 04/11/22 09:02 69 16 182/79 99 04/11/22 08:23 97.0 F L 67 16 180/86 98 Intake and Output 04/11/22 04/11/22 04/11/22 06:59 14:59 22:59 Intake Total 1251 Output Total 30 Balance 1221 Intake: IV 1251 Output: Estimated Blood Loss 30 Other: Weight 99.7 kg 99.7 kg Assessment and Plan Time with Patient: Less than 30
[2022-04-12 08:56] LABS: Basophils # (A) 0.01 X 10*3/uL (0.00-0.10); Basophils % (A) 0.1 %; Eosinophils # (A) 0 X 10*3/uL (0.04-0.35); Eosinophils % (A) 0 %; HCT 35.1 % (37.2-46.3); Immature Grans, Automated 0.2 %; Lymphocytes # (A) 1.15 X 10*3/uL (0.90-5.00); Lymphocytes % (A) 13.4 %; MCH 29.3 pg (27.0-32.0); MCHC 31.3 g/dL (32.0-37.0); MCV 93.4 fL (80.0-97.0); Mean Platelet Volume 10.9 fL (9.5-12.2); Monocytes # (A) 1.27 X 10*3/uL (0.20-1.00); Monocytes % (A) 14.8 %; NRBC Per 100 WBC 0 /100 WBCS (0.0-0.0); Neutrophils # (A) 6.15 X 10*3/uL (1.80-7.70); Neutrophils % (A) 71.5 %; Platelet Count 282 X 10*3/uL (140-440); RBC 3.76 X 10*6/uL (4.10-5.20); RDW 13.2 % (11.5-14.5)
[2022-04-12] MEDS: ASPIRIN 325 MG TAB PO SCH (08:56)
[2022-04-12] MEDS: HYDROcodone/APAP 7.5-325MG 1 EACH TAB PO PRN (08:56)
[2022-04-12] MEDS: LOSARTAN 25 MG TAB PO SCH (08:56)
[2022-04-12] MEDS: VIT A,C & E-LUTEIN-MINERALS 1 EACH TAB PO SCH (08:56)
[2022-04-12] MEDS ORDERED: METOPROLOL SUCCINATE (ER) 25 MG TAB.ER.24H PO SCH (09:00)
[2022-04-12] MEDS ORDERED: MELOXICAM 7.5 MG TAB PO SCH (09:00)
[2022-04-12] MEDS ORDERED: FAMOTIDINE 20 MG TAB PO SCH (09:00)
[2022-04-12 09:24] LABS: African American GFR (CKD) 110.3 (60.0-200.0); Anion Gap 7.4 mmol/L (10.00-18.00); BUN/Creat Ratio 16.42 Ratio (12.00-20.00); Blood Urea Nitrogen 9.6 mg/dL (9.0-27.0); Calcium 8.5 mg/dL (8.7-10.3); Carbon Dioxide 26.6 mmol/L (20.0-27.5); Non-African American GFR(CKD) 95.2 (60.0-200.0); Potassium 4.2 mmol/L (3.5-5.5)
--- NOTE | 2022-04-12 14:11 | P.PN ---
Subjective Progress Note Date: 04/12/22 This is a 66 year old female who follows with Dr. Mayberry. Medical history of hypertension, hyperlipidemia, gastric sleeve and osteoarthritis with history of total left knee in 2016. Patient presents to the hospital for planned right total knee arthroplasty with Dr. Hurst. She is evaluated on the medical floor today postoperatively. She is on room air, blood pressure 149/83, afebrile. Heart rate is in the 50s-60s. She has been started on aspirin 325 twice a day for DVT prophylaxis by primary services. Pain management, bowel regimen are in place. Recommend to continue with losartan. Recommending to hold Metoprolol Succinate 50 mg daily at this time secondary to bradycardia. Recommend telemetry monitoring overnight and consider resuming beta freddie at low dose. Preoperative labs show a sodium of 146 and will check a BMP in the morning 04/12/2022 Patient is evaluated today postoperative day #1 right total knee arthroplasty. Heart rate had improved overnight and she is resumed on Toprol XL at a lower dose. Labs today showing white count within normal limits, hemoglobin of 11.1, BUN 9.6, creatinine 0.6. Afebrile, heart rate 82, blood pressure 144/65, 98% on 2L nasal cannula. She will be discharged home with homecare/PT today. Review of Systems Constitutional: Denied any fatigue denied any fever. Cardio vascular: denied any chest pain, palpitations Gastrointestinal: denied any nausea, vomiting, diarrhea Pulmonary: Denied any shortness of breath cough Neurologic denied any new focal deficits All inpatient medications were reviewed and appropriate changes in these medications as dictated in the interval history and assessment and plan. PHYSICAL EXAMINATION: GENERAL: The patient is alert and oriented x3, not in any acute distress. Well developed, well nourished. HEENT: Pupils are round and equally reacting to light. EOMI. No scleral icterus. No conjunctival pallor. Normocephalic, atraumatic. No pharyngeal erythema. No thyromegaly. CARDIOVASCULAR: S1 and S2 present. No murmurs, rubs, or gallops. PULMONARY: Chest is clear to auscultation, no wheezing or crackles. ABDOMEN: Soft, nontender, nondistended, normoactive bowel sounds. No palpable organomegaly. MUSCULOSKELETAL: No joint swelling or deformity. EXTREMITIES: No cyanosis, clubbing, or pedal edema. Post surgical right knee. NEUROLOGICAL: Gross neurological examination did not reveal any focal deficits. SKIN: No rashes. Assessment plan Assessment Postoperative day 1 right total knee arthroplasty Severe osteoarthritis Sinus bradycardia resolved Hypertension Hyperlipidemia History gastric sleeve Obesity GI prophylaxis DVT prophylaxis Full Code Plan Resume Toprol XL at decreased dose Continue all other home medications Pain management as per primary Continue Bowel Regimen Cleared medically for DC home with PT services today. Thank you for this consultation The impression and plan of care has been dictated by Nurse Yadira Prac titioner as directed. Dr. Rex MD I have performed a history and physical examination and medical decision making of this patient, discussed the same with the dictator, and agree with the dictators assessment and plan as written, documented as a scribe. Based on total visit time, I have performed more than 50% of this visit. Objective - Vital Signs Vital signs: Vital Signs Temp 98.4 F 04/12/22 07:14 Pulse 82 04/12/22 07:14 Resp 17 04/12/22 07:14 BP 144/65 04/12/22 07:14 Pulse Ox 98 04/12/22 07:14 FiO2 Intake & Output 04/11/22 04/12/22 04/12/22 18:59 06:59 18:59 Intake Total 1251 Output Total 380 Balance 871 Weight 99.7 kg Intake: IV 1251 Output: Urine 350 Estimated Blood Loss 30 Other: # Voids 1 1 - Labs CBC & Chem 7: 04/12/22 05:18 04/12/22 05:18 Labs: Abnormal Lab Results - Last 24 Hours (Table) 04/12/22 04/12/22 Range/Units 05:18 05:18 RBC 3.76 L (4.10-5.20) X 10*6/uL Hgb 11.0 L (12.0-15.0) g/dL Hct 35.1 L (37.2-46.3) % MCHC 31.3 L (32.0-37.0) g/dL Monocytes # 1.27 H (0.20-1.00) X 10*3/uL Eosinophils # 0 L (0.04-0.35) X 10*3/uL Anion Gap 7.40 L (10.00-18.00) mmol/L Calcium 8.5 L (8.7-10.3) mg/dL Assessment and Plan Time with Patient: Less than 30
--- NOTE | 2022-04-12 15:35 | P.DS ---
Providers Expected date of discharge: 04/12/22 Attending physician: Wayne Sampson Consults: 04/11/22 14:28 Consult Physician Routine Consulting Provider: Adriane Palacios Consult Reason/Comments: medical management Do you want consulting provider notified?: Yes Primary care physician: Roz Mayberry - Discharge Diagnosis(es) (1) Osteoarthritis of right knee Status: Acute (2) Status post total right knee replacement Status: Acute Hospital Course: This is a 66-year-old female with known history of degenerative arthritis of the right knee. The patient presented for evaluation as an outpatient. After discussion and consideration patient elects to proceed with total knee arthroplasty. The patient is seen preoperatively by Dr. Sampson and medically cleared for surgery by their primary care physician. Patient is admitted to [facility] on 04/11/2022 for total knee arthroplasty. The procedure is performed without complication or sequelae. The patient is doing well postoperatively. Labs and vital signs are stable on day of discharge. On day of discharge patient's knee incision is healing well. There is minimal erythema. There is no drainage noted at this time. There is minimal soft tissue swelling to the knee. Patient has full foot and ankle motion without difficulty or pain. Calf is soft and nontender to palpation. Neurovascular status to the right lower extremity is intact. Patient is discharged home in good condition. Please see med rec for accurate list of home medications. Plan - Discharge Summary Discharge Rx Participant: Yes New Discharge Prescriptions: New Celecoxib [CeleBREX] 200 mg PO DAILY #30 capsule Famotidine [Pepcid] 20 mg PO DAILY tab Temazepam [Restoril] 15 mg PO 2200 PRN cap PRN Reason: Insomnia Metoprolol Succinate (ER) [Toprol Xl] 25 mg PO DAILY #30 tab Aspirin 325 mg PO BID #60 tab HYDROcodone/APAP 7.5-325MG [Ideal 7.5-325] 1 - 2 tab PO Q6HR PRN #32 tab PRN Reason: Pain Sennosides-Docusate Sodium [Senokot-S] 1 tab PO BID #60 tablet Ondansetron Odt [Zofran Odt] 4 mg PO Q8HR PRN #14 tab PRN Reason: Nausea Continue Pravastatin Sodium [Pravachol] 20 mg PO HS Ergocalciferol [Vitamin D2 (1250 Mcg = 17609 Iu)] 1,250 mcg PO WE Losartan Potassium [Cozaar] 25 mg PO DAILY Ibuprofen [Advil] 200 - 400 mg PO Q6HR PRN PRN Reason: Pain Vit C/E/Zn/Coppr/Lutein/Zeaxan [Preservision Areds 2 Softgel] 1 each PO BID Discontinued Metoprolol Succinate (ER) [Toprol XL] 50 mg PO DAILY Discharge Medication List Ergocalciferol [Vitamin D2 (1250 Mcg = 61650 Iu)] 1,250 mcg PO WE 04/07/22 [History] Ibuprofen [Advil] 200 - 400 mg PO Q6HR PRN 04/07/22 [History] Losartan Potassium [Cozaar] 25 mg PO DAILY 04/07/22 [History] Pravastatin Sodium [Pravachol] 20 mg PO HS 04/07/22 [History] Vit C/E/Zn/Coppr/Lutein/Zeaxan [Preservision Areds 2 Softgel] 1 each PO BID 04/07/22 [History] Aspirin 325 mg PO BID #60 tab 04/11/22 [Rx] Celecoxib [CeleBREX] 200 mg PO DAILY #30 capsule 04/11/22 [Rx] HYDROcodone/APAP 7.5-325MG [Ideal 7.5-325] 1 - 2 tab PO Q6HR PRN #32 tab 04/11/22 [Rx] Ondansetron Odt [Zofran Odt] 4 mg PO Q8HR PRN #14 tab 04/11/22 [Rx] Sennosides-Docusate Sodium [Senokot-S] 1 tab PO BID #60 tablet 04/11/22 [Rx] Famotidine [Pepcid] 20 mg PO DAILY tab 04/12/22 [Rx] Metoprolol Succinate (ER) [Toprol Xl] 25 mg PO DAILY #30 tab 04/12/22 [Rx] Temazepam [Restoril] 15 mg PO 2200 PRN cap 04/12/22 [Rx] Follow up Appointment(s)/Referral(s): [facility] [NON-STAFF] - As Needed (*Please call [facility] once home to arrange delivery of the Continuous Passive Motion (CPM) machine. ) [facility], [NON-STAFF] - As Needed ([facility] will call you to schedule your in home physical therapy appointments. ) Roz Mayberry MD [Primary Care Provider] - 04/20/22 1:15 pm Wayne Sampson DO [Doctor of Osteopathic Medicine] - 04/29/22 3:00 pm Patient Instructions/Handouts: *Surgery [facility] - On-Q Pain Pump Discharge Instructions, Metoprolol (By mouth), Hydrocodone/Acetaminophen (By mouth), Aspirin (By mouth), Ondansetron (By mouth), Celecoxib (By mouth), Senna (By mouth), Knee Replacement (DC) Activity/Diet/Wound Care/Special Instructions: May bear weight as tolerated with a walker. May remove dressing and may shower 48 hours post op. Keep Optifoam dressing intact 7 days. Discharge Disposition: HOME WITH HOME HEALTH SERVICES
[2022-04-13] MEDS ORDERED: ERGOCALCIFEROL 1,250 MCG (50,000 IU) CAPSULE PO SCH (09:00)
== END 2022-04-12 13:46 | disposition home health service (06) ==
LOC: OR 07:22 → 4SSUR 11:14 → OR 04-12 13:46
PROVIDERS: ATTEND Orthopaedic Surgery
DX: M17.11 Unilateral primary osteoarthritis, right knee (principal); G89.18 Other acute postprocedural pain; I10 Essential (primary) hypertension; E78.5 Hyperlipidemia, unspecified; Z79.899 Other long term (current) drug therapy; Z82.49 Family history of ischemic heart disease and other diseases of the circulatory system; Z83.3 Family history of diabetes mellitus
CPT/HCPCS: 97161; 64999; 64448; 76942; 80048; 85025; 88300; 73560; 27447; C1713; C1776; C1751; J2250; J1100; J0690 ×3; J2405; J1170; J2795

== ENCOUNTER 2022-11-13 18:17 | Emergency (ER) | payer MEDICARE, OTHER ==
[2022-11-13] MEDS ORDERED: HYDROmorphone 1 MG/ML 1 ML SYRINGE IVP STA (18:36)
[2022-11-13 18:47] VITALS: RESP 16
--- NOTE | 2022-11-13 18:51 | ED ---
Fall HPI - General Chief Complaint: Fall Stated Complaint: Fall Time Seen by Provider: 11/13/22 18:34 Source: patient, EMS, RN notes reviewed Mode of arrival: EMS - History of Present Illness Initial Comments: Patient is 67-year-old female presenting to the emergency room via EMS after a stumble and fall. She reports that she was reaching for a door handle and due to her neuropathy and missing the door handle and fell backwards hitting her head and hyperextending her right knee. She has had a headache and dizziness since the fall. She is also complaining of neck pain. She also complains of pain in her right knee and lower extremity despite receiving morphi ne from EMS. She has macular degeneration and denies any changes in her chronic vision impairment. She denies any abdominal pain, pelvic pain, nausea, vomiting. She denies any injury to any other location. In addition to her macular degeneration and peripheral neuropathy she has past medical history significant for varicose veins, osteoporosis and osteoarthritis. - Related Data Home Medications Medication Instructions Recorded Confirmed Ibuprofen [Advil] 200 - 400 mg PO Q6HR PRN 04/07/22 08/12/22 Pravastatin Sodium [Pravachol] 20 mg PO HS 04/07/22 08/12/22 Vit C/E/Zn/Coppr/Lutein/Zeaxan 1 each PO BID 04/07/22 08/12/22 [Preservision Areds 2 Softgel] Apixaban [Eliquis Starter Pack 5 mg PO BID 08/12/22 08/12/22 (for VTE)] Previous Rx's Medication Instructions Recorded HYDROcodone/APAP 7.5-325MG [Avant 1 - 2 tab PO Q6HR PRN #32 tab 04/11/22 7.5-325] Allergies Allergy/AdvReac Type Severity Reaction Status Date / Time No Known Allergies Allergy Verified 11/13/22 18:46 Review of Systems ROS Statement: Those systems with pertinent positive or pertinent negative responses have been documented in the HPI. ROS Other: All systems not noted in ROS Statement are negative. Past Medical History Past Medical History: Osteoarthritis (OA) Additional Past Medical History / Comment(s): varicose veins, hx. frequent bronchitis years ago, osteoporosis, macular degeneration History of Any Multi-Drug Resistant Organisms: None Reported Past Surgical History: Joint Replacement, Orthopedic Surgery Additional Past Surgical History / Comment(s): arthroscopic-dion knees and ankles, dion ganglion cysts, left knee replaced August 2015, gastric sleeve 11/23/15, Right meniscus repair, 2021, Right Total Knee - 2021, left hand cyst removal, left wrist surgery, bilateral cataract surgery - 2021 Past Anesthesia/Blood Transfusion Reactions: No Reported Reaction Additional Past Anesthesia/Blood Transfusion Reaction / Comment(s): PONV after last arthroscopy Past Psychological History: No Psychological Hx Reported Smoking Status: Never smoker Past Alcohol Use History: None Reported Past Drug Use History: None Reported - Past Family History Brother(s) Family Medical History: CVA/TIA, Diabetes Mellitus Father Family Medical History: Cancer, Diabetes Mellitus Sister(s) Family Medical History: Cancer, Fibromyalgia Mother Family Medical History: Dementia, Deep Vein Thrombosis (DVT) General Exam Limitations: no limitations General appearance: alert, in no apparent distress Head exam: Present: atraumatic, normocephalic, normal inspection Eye exam: Present: normal appearance, PERRL, EOMI. Absent: scleral icterus, conjunctival injection, periorbital swelling ENT exam: Present: normal exam, mucous membranes moist Neck exam: Present: other (c-collar intact). Absent: tenderness Respiratory exam: Present: normal lung sounds bilaterally. Absent: respiratory distress, wheezes, rales, rhonchi, stridor Cardiovascular Exam: Present: regular rate, normal rhythm, normal heart sounds. Absent: systolic murmur, diastolic murmur, rubs, gallop, clicks GI/Abdominal exam: Present: soft, normal bowel sounds. Absent: distended, te nderness, guarding, rebound, rigid Extremities exam: Present: normal inspection. Absent: pedal edema, joint swelling Right Knee exam: Present: full ROM, tenderness, swelling (Distal chronic). Absent: abrasion, laceration, ecchymosis, deformity, crepitus, dislocation, erythema Lower Leg exam: Present: full ROM, tenderness, swelling (Chronic). Absent: abrasion Neurovascular tendon exam: Present: no vascular compromise Gait: not tested/not observed Back exam: Present: normal inspection Neurological exam: Present: alert, oriented X3, CN II-XII intact Psychiatric exam: Present: normal affect, normal mood Skin exam: Present: warm, dry, intact, normal color. Absent: rash Course Vital Signs 11/13/22 11/13/22 11/13/22 18:41 18:44 18:50 Temperature 97.7 F Pulse Rate 100 Respiratory 16 Rate Blood Pressure 137/75 137/75 O2 Sat by Pulse 96 78 L 95 Oximetry 11/13/22 11/13/22 11/13/22 19:30 19:40 19:50 Temperature Pulse Rate Respiratory Rate Blood Pressure 135/84 135/84 O2 Sat by Pulse 94 L 64 L 74 L Oximetry 11/13/22 11/13/22 11/13/22 20:00 20:10 20:20 Temperature Pulse Rate Respiratory Rate Blood Pressure 135/84 121/64 121/64 O2 Sat by Pulse 90 L 89 L 87 L Oximetry 11/13/22 11/13/22 20:30 21:10 Temperature 98.9 F Pulse Rate 74 Respiratory 16 Rate Blood Pressure 121/64 140/79 O2 Sat by Pulse Oximetry Medical Decision Making - Medical Decision Making Was pt. sent in by a medical professional or institution (, PA, NEWSPAPER COPY EDITOR, urgent care, hospital, or jail...) When possible be specific @ -No Did you speak to anyone other than the patient for history (EMS, parent, family, police, friend...)? What history was obtained from this source @ -Yes, spoke with EMS regarding medications given by EMS, present dictation and current complaints. Did you review nursing and triage notes (agree or disagree)? Why? @ -I reviewed and agree with nursing and triage notes Were old charts reviewed (outside hosp., previous admission, EMS record, old EKG, old radiological studies, urgent care reports/EKG's, jail records)? Report findings @ -No old charts were reviewed Differential Diagnosis (chest pain, altered mental status, abdominal pain women, abdominal pain men, vaginal bleeding, weakness, fever, dyspnea, syncope, headache, dizziness, GI bleed, back pain, seizure, CVA, palpatations, mental health, musculoskeletal)? @ -Differential Musculoskeletal Muscular strain, contusion, ligament sprain, fracture, arthritis, septic arthritis, bursitis, cellulitis, muscle spasm, nerve compression, DVT, arterial occlusion, herpes zoster, electrolyte abnormality, tumor.... This is not meant to be in all inclusive list EKG interpreted by me (3pts min.). @ -None done X-rays interpreted by me (1pt min.). @ -X-ray right knee and tibia-fibula: Right knee hardware in place without any subluxation or fracture to patella, tibia or fibula noted. CT interpreted by me (1pt min.). @ -CT brain cervical spine: No acute intracranial process, no mass, intracranial hemorrhage or shift. No cervical spine fracture or subluxation. U/S interpreted by me (1pt. min.). @ -None done What testing was considered but not performed or refused? (CT, X-rays, U/S, labs)? Why? @ -None What meds were considered but not given or refused? Why? @ -None Did you discuss the management of the patient with other professionals (professionals i.e. , PA, NEWSPAPER COPY EDITOR, lab, RT, psych nurse, manager social media, bagging machine operator, teacher, hospital chief financial officer, case repairer)? Give summary @ -No Was smoking cessation discussed for >3mins.? @ -No Was critical care preformed (if so, how long)? @ -No Were there social determinants of health that impacted care today? How? (Homelessness, low income, unemployed, alcoholism, drug addiction, transp ortation, low edu. Level, literacy, decrease access to med. care, long-term, rehab)? @ -No Was there de-escalation of care discussed even if they declined (Discuss DNR or withdrawal of care, Hospice)? DNR status @ -No What co-morbidities impacted this encounter? (DM, HTN, Smoking, COPD, CAD, Cancer, CVA, ARF, Chemo, Hep., AIDS, mental health diagnosis, sleep apnea, morbid obesity)? @ -None Was patient admitted / discharged? Hospital course, mention meds given and route, prescriptions, significant lab abnormalities, going to OR and other pertinent info. @ -67-year-old female presenting to the emergency room via EMS after a stumble and fall. She reports that she was reaching for a door handle and due to her neuropathy and missing the door handle and fell backwards hitting her head and hyperextending her right knee. She has had a headache and dizziness since the fall. She is also complaining of neck pain. Morphine given by EMS will give additional pain medication of 1 mg of Dilaudid. Will obtain computed tomography scan of the brain and cervical spine along with x-ray of the right knee and tibia-fibula wishes or any marked. Due to fall will obtain CBC and CMP as well. Pain improved with Dilaudid. CBC and CMP without any abnormalities. X-ray of the right knee and tibia-fibula without any fracture or subluxation. CT of the brain and cervical spine without any acute abnormalities. No indication for further diagnostic imaging or laboratory studies. Patient with a prescription for Avant for arthritic pain at home already. Advised patient to take this medication as prescribed by her primary care provider and follow-up with her primary care provider regarding her pain. Fall precautions encouraged. Questions and concerns answered. Return parameters emergency room discussed. Will discharge home in stable condition status post fall encouraging fall precautions, use of already prescribed pain medication to help with head, neck and knee pain along with follow-up with primary care provider. Undiagnosed new problem with uncertain prognosis? @ -No Drug Therapy requiring intensive monitoring for toxicity (Heparin, Nitro, Insulin, Cardizem)? @ -No Were any procedures done? @ -No Diagnosis/symptom? @ -Fall Acute, or Chronic, or Acute on Chronic? @ -Acute Uncomplicated (without systemic symptoms) or Complicated (systemic symptoms)? @ -Uncomplicated Side effects of treatment? @ -No Exacerbation, Progression, or Severe Exacerbation? @ -No Poses a threat to life or bodily function? How? (Chest pain, USA, [place], pneumonia, PE, COPD, DKA, ARF, appy, cholecystitis, CVA, Diverticulitis, Homicidal, Suicidal, threat to staff... and all critical care pts) @ -No Case discussed with Dr. Lin - Lab Data Result diagrams: 11/13/22 18:52 11/13/22 18:52 Lab Results 11/13/22 11/13/22 Range/Units 18:52 18:52 WBC 7.1 (3.8-10.6) k/uL RBC 4.55 (3.80-5.40) m/uL Hgb 13.0 (11.4-16.0) gm/dL Hct 40.4 (34.0-46.0) % MCV 88.8 (80.0-100.0) fL MCH 28.6 (25.0-35.0) pg MCHC 32.3 (31.0-37.0) g/dL RDW 13.8 (11.5-15.5) % Plt Count 243 (150-450) k/uL MPV 7.7 Neutrophils % 60 % Lymphocytes % 27 % Monocytes % 7 % Eosinophils % 5 % Basophils % 0 % Neutrophils # 4.3 (1.3-7.7) k/uL Lymphocytes # 1.9 (1.0-4.8) k/uL Monocytes # 0.5 (0-1.0) k/uL Eosinophils # 0.4 (0-0.7) k/uL Basophils # 0.0 (0-0.2) k/uL Sodium 138 (137-145) mmol/L Potassium 4.3 (3.5-5.1) mmol/L Chloride 104 (98-107) mmol/L Carbon Dioxide 28 (22-30) mmol/L Anion Gap 6 mmol/L BUN 11 (7-17) mg/dL Creatinine 0.53 (0.52-1.04) mg/dL Est GFR (CKD-EPI)AfAm >90 (>60 ml/min/1.73 sqM) Est GFR (CKD-EPI)NonAf >90 (>60 ml/min/1.73 sqM) Glucose 93 (74-99) mg/dL Calcium 8.8 (8.4-10.2) mg/dL Total Bilirubin 0.4 (0.2-1.3) mg/dL AST 30 (14-36) U/L ALT 15 (4-34) U/L Alkaline Phosphatase 122 (38-126) U/L Total Protein 6.3 (6.3-8.2) g/dL Albumin 3.6 (3.5-5.0) g/dL Disposition Clinical Impression: Fall Disposition: HOME SELF-CARE Condition: Stable Instructions (If sedation given, give patient instructions): Fall Prevention for Older Adults (ED) Additional Instructions: Please utilize your already prescribed Avant prescription for pain as needed. Pl ease follow-up with your primary care provider. Please change positions slowly and utilize fall precautions along with safety devices such as a cane. Please return to the Emergency Department if symptoms worsen or any other concerns. Is patient prescribed a controlled substance at d/c from ED?: No Referrals: Roz Mayberry MD [Primary Care Provider] - 1-2 days Time of Disposition: 20:40
[2022-11-13 19:01] LABS: Basophils % (A) 0 %; Eosinophils # (A) 0.4 k/uL (0-0.7); Eosinophils % (A) 5 %; HCT 40.4 % (34.0-46.0); Lymphocytes # (A) 1.9 k/uL (1.0-4.8); Lymphocytes % (A) 27 %; MCH 28.6 pg (25.0-35.0); MCHC 32.3 g/dL (31.0-37.0); MCV 88.8 fL (80.0-100.0); Mean Platelet Volume 7.7; Monocytes # (A) 0.5 k/uL (0-1.0); Monocytes % (A) 7 %; Neutrophils # (A) 4.3 k/uL (1.3-7.7); Neutrophils % (A) 60 %; Platelet Count 243 k/uL (150-450); RBC 4.55 m/uL (3.80-5.40); RDW 13.8 % (11.5-15.5); WBC 7.1 k/uL (3.8-10.6)
[2022-11-13 19:21] LABS: ALT 15 U/L (4-34); AST 30 U/L (14-36); African American GFR (CKD) >90 (>60 ml/min/1.73 sqM); Albumin 3.6 g/dL (3.5-5.0); Alkaline Phosphatase 122 U/L (38-126); Anion Gap 6 mmol/L; Blood Urea Nitrogen 11 mg/dL (7-17); Calcium 8.8 mg/dL (8.4-10.2); Carbon Dioxide 28 mmol/L (22-30); Chloride 104 mmol/L (98-107); Glucose 93 mg/dL (74-99); Non-African American GFR(CKD) >90 (>60 ml/min/1.73 sqM); Potassium 4.3 mmol/L (3.5-5.1); Sodium 138 mmol/L (137-145); Total Bilirubin 0.4 mg/dL (0.2-1.3); Total Protein 6.3 g/dL (6.3-8.2)
--- NOTE | 2022-11-13 19:40 | XR ---
EXAMINATION TYPE: XR tibia fibula RT, XR knee complete RT DATE OF EXAM: 11/13/2022 7:07 PM INDICATION: Patient age:Female; 67 years old; Reason for study: fall; [facility]. COMPARISON: None TECHNIQUE: The right tibia/fibula was examined in AP and lateral projections. Right knee was evaluated in frontal lateral and open oblique views. FINDINGS: Total knee arthroplasty changes with hardware intact. No evidence of any acute osseous path ology, joint dislocation, or soft tissue swelling is noted. IMPRESSION: No evidence of acute fracture.
--- NOTE | 2022-11-13 19:56 | CT ---
EXAMINATION TYPE: CT brain cspine wo con CT DLP: 1443.7 mGycm, Automated exposure control for dose reduction was used. DATE OF EXAM: 11/13/2022 7:24 PM COMPARISON: None. CLINICAL INDICATION:Female, 67 years old with history of fall; fall TECHNIQUE: Brain: Multiple axial CT images of the brain were obtained without IV contrast. Cspine: Axial CT images from the skull base to the inferior aspect of T2 we obtained without intraven ous contrast. Coronal and sagittal reformatted images were also reviewed. FINDINGS: Brain: Extra-axial spaces: No abnormal extra-axial fluid collections. Ventricular system: Dilatation in proportion to cerebral atrophy. Cerebral parenchyma: Cerebral atrophy. No acute intraparenchymal hemorrhage or mass effect. The agee -white junction is well differentiated. Scattered hypoattenuating areas are seen within the white mat ter. Cerebellum: Unremarkable. Mass effect: No evidence of midline shift. Intracranial vasculature: Atherosclerotic calcifications of the intracranial vessels. Soft tissues: Normal. Calvarium/osseous structures: No depressed skull fracture. Paranasal sinuses and mastoid air cells: Decreased pneumatization of the left mastoid air cells. Visualized orbits: Bilateral aphakia Cervical spine: Fracture: None. Osseous structures: Multilevel degenerative disc disease changes with endplate spurring and disc oste ophyte complex's. Vertebral alignment: Within normal limits. Spinal canal/Neural Foramina: No evidence of significant spinal canal narrowing. No evidence for sign ificant neural foraminal stenosis. Neck soft tissues: Prevertebral soft tissues are within normal limits. Other: The airway is patent. The lung apices are clear. IMPRESSION: 1. No acute intracranial process. 2. No evidence of cervical spine fracture. 3. Mild multilevel degenerative disc disease.
[2022-11-13 21:15] VITALS: BP 140/79; PULSE 74; TEMP 98.9
== END 2022-11-13 21:26 | disposition home or self-care (01) ==
LOC: EC 18:17
DX: S09.90XA Unspecified injury of head, initial encounter (principal); M19.90 Unspecified osteoarthritis, unspecified site; Z79.1 Long term (current) use of non-steroidal anti-inflammatories (NSAID); W18.30XA Fall on same level, unspecified, initial encounter
CPT/HCPCS: 36415; 80053; 85025; 73590; 73562; 72125; 70450; 99285; 96374; J1170

== ENCOUNTER → 2023-10-27 | Outpatient (CLI) | payer MEDICARE ==
[2023-10-27 15:10] LABS: Partial Thromboplastin Time 24.3 sec (22.0-30.0); Prothrombin Time 10.9 sec (10.0-12.5)
[2023-10-27 18:44] LABS: HCT 41.7 % (37.2-46.3); HGB 12.7 g/dL (12.0-15.0); MCH 27.3 pg (27.0-32.0); MCHC 30.5 g/dL (32.0-37.0); MCV 89.5 FL (80.0-97.0); Mean Platelet Volume 10.4 FL (9.5-12.2); NRBC Per 100 WBC 0 X 10*3/uL (0.00-0.01); Platelet Count 297 X 10*3/uL (140-440); RBC 4.66 X 10*6/uL (4.10-5.20); RDW 15.2 % (11.5-14.5); WBC 6.11 X 10*3/uL (4.50-10.00)
[2023-10-27 18:52] LABS: Prealbumin 16.3 mg/dL (18.0-42.0)
[2023-10-27 19:20] LABS: % Iron Saturation 7.31 (12.00-45.00); ALT 14 U/L (8-44); AST 27 U/L (13-35); Albumin 4.4 g/dL (3.8-4.9); Albumin/Globulin Ratio 1.91 Ratio (1.60-3.17); Alkaline Phosphatase 152 U/L (41-126); BUN/Creat Ratio 12.43 Ratio (12.00-20.00); Blood Urea Nitrogen 8.7 mg/dL (9.0-27.0); Calcium 9.3 mg/dL (8.7-10.3); Carbon Dioxide 22.9 mmol/L (21.6-31.8); Chloride 104 mmol/L (96-109); Chol/HDL Ratio 2.13 Ratio; Globulin 2.3 g/dL (1.6-3.3); Glucose 81 mg/dL (70-110); Iron 34 UG/DL (50-170); LDL Cholesterol,Calculated 57.3 mg/dL (0.0-131.0); Phosphorus 4.2 mg/dL (2.4-5.1); Potassium 4.3 mmol/L (3.5-5.5); Sodium 142 mmol/L (135-145); Total Bilirubin 0.3 mg/dL (0.3-1.2); Total Iron Binding Capacity 465 UG/DL (228-460); Total Protein 6.7 g/dL (6.2-8.2)
== END | disposition home or self-care (01) ==
LOC: LABWHC1 13:59
PROVIDERS: ATTEND Surgery Plastic and Reconstructive Surgery
DX: E66.01 Morbid (severe) obesity due to excess calories (principal); E89.1 Postprocedural hypoinsulinemia; D50.8 Other iron deficiency anemias; K91.2 Postsurgical malabsorption, not elsewhere classified; E44.0 Moderate protein-calorie malnutrition; E45 Retarded development following protein-calorie malnutrition; E55.9 Vitamin D deficiency, unspecified; K74.1 Hepatic sclerosis; N19 Unspecified kidney failure; K50.90 Crohn's disease, unspecified, without complications; T56.894A Toxic effect of other metals, undetermined, initial encounter; R94.31 Abnormal electrocardiogram [ECG] [EKG]
CPT/HCPCS: 84255; 84134; 84425; 80061; 80053; 82607; 82728; 82525; 82746; 83540; 83550; 83735; 84100; 84443; 84590; 84630; 85027; 85610; 85730; 82306; 83970; 83036; 80307; 93005; 36415; G0480; 80323

== ENCOUNTER → 2023-11-06 | Outpatient (CLI) | payer MEDICARE ==
--- NOTE | 2023-11-29 12:53 | FL ---
Amber Mccray : 1955 EXAMINATION TYPE: FL barium swallow DATE OF EXAM: 11/06/2023 CLINICAL INDICATION: 68-year-old female R1 3.10, dysphagia. COMPARISON: None available during downtime Total Fluoroscopy Time: 2 minutes 52 seconds Total DAP: 976 mGycm2 35 images obtained. FINDINGS: Thin barium was utilized due to prior sleeve gastrectomy. There is mild to moderate tertiary peristal sis present. There is progressive distention of a moderate-sized hiatal hernia with recurrent episode s of severe gastroesophageal reflux demonstrated. There is delayed passage into the patient's gastric sleeve located at the level of the diaphragmatic hiatus. Passages promoted when the patient is broug ht supine. No discrete filling defect or mucosal abnormality is clearly identified though assessment is limited due to use of single contrast technique. . IMPRESSION: 1. Status post sleeve gastrectomy with a moderate sized hiatal hernia. This progressively distends du ring ingestion. 2. The proximal aspect of the sleeve is at the level of the diaphragmatic hiatus and there is delayed passage across this portion of the stomach. Contrast passage is promoted when the patient is brought supine. Consider direct visualization to exclude a gastric stricture at the proximal aspect of the s leeve.
== END | disposition home or self-care (01) ==
LOC: RADUSWWP 10:07
PROVIDERS: ATTEND Surgery Plastic and Reconstructive Surgery
DX: R13.10 Dysphagia, unspecified (principal); Z98.84 Bariatric surgery status; K44.9 Diaphragmatic hernia without obstruction or gangrene
CPT/HCPCS: 74220

== ENCOUNTER 2024-03-04 22:15 | Emergency (ER) | payer MEDICARE ==
[2024-03-04 22:20] VITALS: TEMP 98.1
--- NOTE | 2024-03-04 22:53 | ED ---
General Adult HPI - General Chief complaint: Neck Pain/Injury Stated complaint: Neck Pain Time Seen by Provider: 03/04/24 22:24 Source: patient Mode of arrival: wheelchair Limitations: no limitations - History of Present Illness Initial comments: Dictation was produced using [employer] dictation software. please excuse any grammatical, word or spelling errors. Chief Complaint: 68-year-old female with cervical spasm History of Present Illness: Patient 68-year-old female presents to the emergency department with cervical spasms. Patient states over the last couple days has been waking up with some aching in her neck. States it has been shifting going from her left neck to her right neck to her posterior head. Denies any numbness tingling paresthesias to the arms or legs. Denies any trauma. The ROS documented in this emergency department record has been reviewed and confirmed by me. Those systems with pertinent positive or negative responses have been documented in the HPI. All other systems are other negative and/or noncontributory. - Related Data Home Medications Medication Instructions Recorded Confirmed Pravastatin Sodium [Pravachol] 20 mg PO HS 04/07/22 10/25/23 Vit C/E/Zn/Coppr/Lutein/Zeaxan 1 each PO BID 04/07/22 10/25/23 [Preservision Areds 2 Softgel] Cholecalciferol [Vitamin D3 (125 125 mcg PO WEEKLY 10/25/23 10/25/23 Mcg = 5000 Iu)] Gabapentin 300 mg PO TID 10/25/23 10/25/23 Gabapentin [Neurontin] 100 mg PO HS 10/25/23 10/25/23 Losartan [Cozaar] 25 mg PO DAILY 10/25/23 10/25/23 traMADol HCL 50 mg PO TID PRN 10/25/23 10/25/23 Previous Rx's Medication Instructions Recorded methocarbamoL [Robaxin] 1,000 mg PO TID PRN #24 tab 03/04/24 Allergies Allergy/AdvReac Type Severity Reaction Status Date / Time No Known Allergies Allergy Verified 03/04/24 22:19 Review of Systems ROS Statement: Those systems with pertinent positive or pertinent negative responses have been documented in the HPI. ROS Other: All systems not noted in ROS Statement are negative. Past Medical History Past Medical History: Osteoarthritis (OA) Additional Past Medical History / Comment(s): varicose veins, hx. frequent bronchitis years ago, osteoporosis, macular degeneration History of Any Multi-Drug Resistant Organisms: None Reported Past Surgical History: Joint Replacement, Orthopedic Surgery Additional Past Surgical History / Comment(s): arthroscopic-dion knees and ankles, dion ganglion cysts, left knee replaced August 2015, gastric sleeve 11/23/15, Right meniscus repair, 2021, Right Total Knee - 2022, left hand cyst removal, left wrist surgery, bilateral cataract surgery - 2021 Past Anesthesia/Blood Transfusion Reactions: No Reported Reaction Additional Past Anesthesia/Blood Transfusion Reaction / Comment(s): PONV after last arthroscopy Past Psychological History: No Psychological Hx Reported Smoking Status: Never smoker Past Alcohol Use History: None Reported Past Drug Use History: None Reported - Past Family History Brother(s) Family Medical History: CVA/TIA, Diabetes Mellitus Father Family Medical History: Cancer, Diabetes Mellitus Sister(s) Family Medical History: Cancer, Fibromyalgia Mother Family Medical History: Dementia, Deep Vein Thrombosis (DVT) General Exam - General Exam Comments Initial Comments: PHYSICAL EXAM: General Impression: Alert and oriented x3, not in acute distress HEENT: Normocephalic atraumatic, extra-ocular movements intact, pupils equal and reactive to light bilaterally, mucous membranes moist, palpatory tenderness along the entire posterior neck Cardiovascular: Heart regular rate and rhythm Chest: Able to complete full sentences, no retractions, no tachypnea Abdomen: abdomen soft, non-tender, non-distended, no organomegaly Musculoskeletal: Pulses present and equal in all extremities, no peripheral edema Motor: no focal deficits noted Neurological: CN II-XII grossly intact, no focal motor or sensory deficits noted Skin: Intact with no visualized rashes Psych: Normal affect and mood Limitations: no limitations Course Vital Signs 03/04/24 22:17 Temperature 98.1 F Pulse Rate 113 H Respiratory 16 Rate Blood Pressure 144/85 O2 Sat by Pulse 98 Oximetry Medical Decision Making - Medical Decision Making Was pt. sent in by a medical professional or institution (, PA, MEDICAL CLAIMS EXAMINER, urgent care, hospital, or senior living...) When possible be specific @ -No Did you speak to anyone other than the patient for history (EMS, parent, family, police, friend...)? What history was obtained from this source @ -No Did you review nursing and triage notes (agree or disagree)? Why? @ -I reviewed and agree with nursing and triage notes Were old charts reviewed (outside hosp., previous admission, EMS record, old EKG, old radiological studies, urgent care reports/EKG's, senior living records)? Report findings @ -No old charts were reviewed Differential Diagnosis (chest pain, altered mental status, abdominal pain women, abdominal pain men, vaginal bleeding, musculoskeletal, weakness, fever, dyspnea, syncope, headache, dizziness, GI bleed, back pain, seizure, CVA, palpatations, mental health)? @ -Cervical fracture, cervical strain, cervical contusion EKG interpreted by me (3pts min.). @ -None done X-rays interpreted by me (1pt min.). @ -None done CT interpreted by me (1pt min.). @ -None done U/S interpreted by me (1pt. min.). @ -None done What testing was considered but not performed or refused? (CT, X-rays, U/S, labs)? Why? @ -None What meds were considered but not given or refused? Why? @ -None Was smoking cessation discussed for >3mins.? @ -No Were there social determinants of health that impacted care today? How? (Homelessness, low income, unemployed, alcoholism, drug addiction, tra nsportation, low edu. Level, literacy, decrease access to med. care, long-term, rehab)? @ -No Was there de-escalation of care discussed even if they declined (Discuss DNR or withdrawal of care, Hospice)? DNR status @ -No What co-morbidities impacted this encounter? (DM, HTN, Smoking, COPD, CAD, Cancer, CVA, ARF, Chemo, Hep., AIDS, mental health diagnosis, sleep apnea, morbid obesity)? @ -None Was patient admitted / discharged? Hospital course, mention meds given and route, prescriptions, significant lab abnormalities, going to OR and other pertinent info. @ -68-year-old female presents to the emergency department for cervical spasm. Vital signs stable. Patient has no associated neurologic symptoms. Patient given Lidoderm patch and muscle relaxant. Patient discharged vies follow-up with primary care doctor. No high risk features Did you discuss the management of the patient with other professionals (professionals i.e. , PA, MEDICAL CLAIMS EXAMINER, lab, RT, psych nurse, aids social worker, rag room supervisor, teacher, fisheries technical officer, caseworker intake)? Give summary @ -No Was critical care preformed (if so, how long)? @ -No Undiagnosed new problem with uncertain prognosis? @ -No Drug Therapy requiring intensive monitoring for toxicity (Heparin, Nitro, Insulin, Cardizem)? @ -No Were any procedures done? @ -No Diagnosis/symptom? Acute, or Chronic, or Acute on Chronic? Uncomplicated (without systemic symptoms) or Complicated (systemic symptoms)? @ -Cervical spasm Side effects of treatment? @ -No Exacerbation, Progression, or Severe Exacerbation? @ -No Poses a threat to life or bodily function? How? (Chest pain, USA, [place], pneumonia, PE, COPD, DKA, ARF, appy, cholecystitis, CVA, Diverticulitis, Homicidal, Suicidal, threat to staff... and all critical care pts) @ -No Disposition Clinical Impression: Spasm of cervical paraspinous muscle Disposition: HOME SELF-CARE Condition: Fair Instructions (If sedation given, give patient instructions): Cervical Strain (ED) Prescriptions: methocarbamoL [Robaxin] 1,000 mg PO TID PRN #24 tab PRN Reason: neck spasm Is patient prescribed a controlled substance at d/c from ED?: No Referrals: Roz Mayberry MD [Primary Care Provider] - 1-2 days Time of Disposition: 22:53
[2024-03-04] MEDS: methocarbamoL 500 MG TAB PO STA (22:56)
[2024-03-04] MEDS: LIDOCAINE 4% PATCH TOPICAL ONE (22:56)
[2024-03-04 23:09] VITALS: BP 139/87; PULSE 100; RESP 20
== END 2024-03-04 23:15 | disposition home or self-care (01) ==
LOC: EC 22:15
DX: M81.0 Age-related osteoporosis without current pathological fracture (principal)
CPT/HCPCS: 99283

== ENCOUNTER 2024-03-14 14:08 | Observation (INO) | payer MEDICARE, OTHER ==
--- NOTE | 2024-03-14 14:56 | ED ---
Recheck HPI - General Chief Complaint: Recheck/Abnormal Lab/Rx Stated Complaint: Abn labs Time Seen by Provider: 03/14/24 14:21 Source: patient, RN notes reviewed Mode of arrival: ambulatory Limitations: no limitations - History of Present Illness Initial Comments: This is a 68-year-old female sent by PCP for abnormal lab work. Patient endorses being seen by her primary care due to ongoing head and neck pain for the past 2 weeks - since 03/01/2024. Patient's PCP states her ESR was 99. Patient was seen in ER earlier this month and treated for back spasm. Patient states her neck pain is not as severe but has worsening left parietal/temporal pain (6/10) with blurred vision of left eye. Patient denies fever, chills, neck stiffness, dizziness, hearing changes, N/V MD Complaint: abnormal lab Onset/Timin -: days(s) Associated Symptoms: other (Headache, blurred vision) - Related Data Home Medications Medication Instructions Recorded Confirmed Pravastatin Sodium [Pravachol] 20 mg PO HS 04/07/22 03/14/24 Vit C/E/Zn/Coppr/Lutein/Zeaxan 1 cap PO BID 04/07/22 03/14/24 [Preservision Areds 2 Softgel] Gabapentin 300 mg PO TID 10/25/23 03/14/24 Gabapentin [Neurontin] 100 mg PO HS 10/25/23 03/14/24 Losartan [Cozaar] 25 mg PO DAILY 10/25/23 03/14/24 traMADol HCL 50 mg PO TID PRN 10/25/23 03/14/24 Ergocalciferol [Vitamin D2 (1250 1,250 mcg PO WE 03/14/24 03/14/24 Mcg = 49182 Iu)] Allergies Allergy/AdvReac Type Severity Reaction Status Date / Time No Known Allergies Allergy Verified 03/14/24 18:15 Review of Systems ROS Statement: Those systems with pertinent positive or pertinent negative responses have been documented in the HPI. ROS Other: All systems not noted in ROS Statement are negative. Past Medical History Past Medical History: Osteoarthritis (OA) Additional Past Medical History / Comment(s): varicose veins, hx. frequent bronchitis years ago, osteoporosis, macular degeneration, neuropathy History of Any Multi-Drug Resistant Organisms: None Reported Past Surgical History: Joint Replacement, Orthopedic Surgery Additional Past Surgical History / Comment(s): arthroscopic-dion knees and ankles, dion ganglion cysts, left knee replaced August 2015, gastric sleeve 11/23/15, Right meniscus repair, 2021, Right Total Knee - 2022, left hand cyst removal, left wrist surgery, bilateral cataract surgery - 2021 Past Anesthesia/Blood Transfusion Reactions: No Reported Reaction Additional Past Anesthesia/Blood Transfusion Reaction / Comment(s): PONV after last arthroscopy Past Psychological History: No Psychological Hx Reported Smoking Status: Never smoker Past Alcohol Use History: None Reported Past Drug Use History: None Reported - Past Family History Brother(s) Family Medical History: CVA/TIA, Diabetes Mellitus Father Family Medical History: Cancer, Diabetes Mellitus Sister(s) Family Medical History: Cancer, Fibromyalgia Mother Family Medical History: Dementia, Deep Vein Thrombosis (DVT) General Exam Limitations: no limitations General appearance: alert, in no apparent distress Head exam: Present: atraumatic, normocephalic, normal inspection Eye exam: Present: normal appearance, PERRL, EOMI. Absent: scleral icterus, conjunctival injection, periorbital swelling ENT exam: Present: normal exam, mucous membranes moist Neck exam: Present: normal inspection. Absent: tenderness, meningismus, lymphadenopathy Respiratory exam: Present: normal lung sounds bilaterally. Absent: respiratory distress, wheezes, rales, rhonchi, stridor Cardiovascular Exam: Present: regular rate, normal rhythm, normal heart sounds. Absent: systolic murmur, diastolic murmur, rubs, gallop, clicks GI/Abdominal exam: Present: soft, normal bowel sounds. Absent: distended, tenderness, guarding, rebound, rigid Extremities exam: Present: normal inspection, full ROM, normal capillary refill. Absent: tenderness, pedal edema, joint swelling, calf tenderness Back exam: Present: normal inspection Neurological exam: Present: alert, oriented X3, CN II-XII intact Psychiatric exam: Present: normal affect, normal mood Skin exam: Present: warm, dry, intact, normal color. Absent: rash Course Vital Signs 03/14/24 03/14/24 03/14/24 14:10 15:24 17:00 Temperature 98.2 F Pulse Rate 82 77 79 Respiratory 16 18 18 Rate Blood Pressure 147/87 112/73 120/78 O2 Sat by Pulse 97 99 98 Oximetry 03/14/24 18:02 Temperature Pulse Rate 76 Respiratory 18 Rate Blood Pressure 116/75 O2 Sat by Pulse 98 Oximetry Medical Decision Making - Medical Decision Making Was pt. sent in by a medical professional or institution (MICHELLE Sheriff, [employer], urgent care, hospital, or [facility]...) When possible be specific @ -Patient's PCP, Dr. Mayberry, due to elevated ESR Did you speak to anyone other than the patient for history (EMS, parent, family, police, friend...)? What history was obtained from this source @ -Spoke to patient's PCP, Dr. Mayberry, who advised of elevated ESR of 99. Did you review nursing and triage notes (agree or disagree)? Why? @ -I reviewed and agree with nursing and triage notes Were old charts reviewed (outside hosp., previous admission, EMS record, old EKG, old radiological studies, urgent care reports/EKG's, [facility] records)? Report findings @ -No old charts were reviewed Differential Diagnosis (chest pain, altered mental status, abdominal pain women, abdominal pain men, vaginal bleeding, weakness, fever, dyspnea, syncope, headache, dizziness, GI bleed, back pain, seizure, CVA, palpatations, mental health, musculoskeletal)? @ -Differential Headache: Migraine, tension, cluster, carbon monoxide, central venous thrombosis, pension karma temporal arteritis, acute closure glaucoma, intercranial hemorrhage, masto iditis, sinusitis, head injury, this is not meant to be an all-inclusive list. EKG interpreted by me (3pts min.). @ -Not done X-rays interpreted by me (1pt min.). @ -None done CT interpreted by me (1pt min.). @ -Not seen by me prior to signing of note U/S interpreted by me (1pt. min.). @ -None done What testing was considered but not performed or refused? (CT, X-rays, U/S, labs)? Why? @ -None What meds were considered but not given or refused? Why? @ -None Did you discuss the management of the patient with other professionals (professionals i.e. MICHELLE Sheriff, [employer], lab, RT, psych nurse, social work lecturer, production department supervisor, teacher, rating officer, case specialist)? Give summary @ -Spoke to patient's PCP, Dr. Mayberry, who advised of elevated ESR of 99. Spoke to Dr. Hussein who advised head CT, IV steroids and ophthalmology consult. Spoke to Dr. Thakkar who agreed to temporal artery biopsy. Spoke to Daiana moy from [facility] who agreed to patient admission. Was smoking cessation discussed for >3mins.? @ -No Was critical care preformed (if so, how long)? @ -No Were there social determinants of health that impacted care today? How? (Homelessness, low income, unemployed, alcoholism, drug addiction, transport ation, low edu. Level, literacy, decrease access to med. care, fpc, rehab)? @ -No Was there de-escalation of care discussed even if they declined (Discuss DNR or withdrawal of care, Hospice)? DNR status @ -No What co-morbidities impacted this encounter? (DM, HTN, Smoking, COPD, CAD, Cancer, CVA, ARF, Chemo, Hep., AIDS, mental health diagnosis, sleep apnea, morbid obesity)? @ -None Was patient admitted / discharged? Hospital course, mention meds given and route, prescriptions, significant lab abnormalities, going to OR and other pertinent info. @ -Lab work is generally unremarkable except CRP of 2.6. ESR on send out. PCP ESR of [address]. [address] Garvey who advised TSH, CTA of head and neck, CT without contrast, IV steroids (1 g Solu-Medrol IV daily x 3 days) and consult o phthalmology. Ophthalmology unavailable today. CTA head and neck ordered but results unavailable prior to signing of note today. Also spoke to Dr. Thakkar from vascular who agreed to ultrasound biopsy of temporal artery. Patient admitted through [facility] for ongoing care and diagnostic testing. Undiagnosed new problem with uncertain prognosis? @ -GCA affecting vision Drug Therapy requiring intensive monitoring for toxicity (Heparin, Nitro, Insulin, Cardizem)? @ -No Were any procedures done? @ -No Diagnosis/symptom? @ -Possible giant cell arteritis Acute, or Chronic, or Acute on Chronic? @ -Acute Uncomplicated (without systemic symptoms) or Complicated (systemic symptoms)? @ -Complicated Side effects of treatment? @ -No Exacerbation, Progression, or Severe Exacerbation? @ -No Poses a threat to life or bodily function? How? (Chest pain, USA, PR, pneumonia, PE, COPD, DKA, ARF, appy, cholecystitis, CVA, Diverticulitis, Homicidal, Suicidal, threat to staff... and all critical care pts) @ -GCA possibly threatening vision - Lab Data Result diagrams: 03/14/24 14:57 03/14/24 14:57 Lab Results 03/14/24 03/14/24 03/14/24 Range/Units 14:57 14:57 14:57 WBC 5.7 (3.8-10.6) k/uL RBC 4.25 (3.80-5.40) m/uL Hgb 12.4 (11.4-16.0) gm/dL Hct 38.2 (34.0-46.0) % MCV 89.9 (80.0-100.0) fL MCH 29.1 (25.0-35.0) pg MCHC 32.3 (31.0-37.0) g/dL RDW 13.5 (11.5-15.5) % Plt Count 488 H (150-450) k/uL MPV 8.1 Neutrophils % 54 % Lymphocytes % 33 % Monocytes % 7 % Eosinophils % 5 % Basophils % 0 % Neutrophils # 3.1 (1.3-7.7) k/uL Lymphocytes # 1.9 (1.0-4.8) k/uL Monocytes # 0.4 (0-1.0) k/uL Eosinophils # 0.3 (0-0.7) k/uL Basophils # 0.0 (0-0.2) k/uL PT 11.8 (10.0-12.5) sec INR 1.1 (<1.2) APTT 23.6 (22.0-30.0) sec Sodium 140 (137-145) mmol/L Potassium 3.7 (3.5-5.1) mmol/L Chloride 106 (98-107) mmol/L Carbon Dioxide 30 (22-30) mmol/L Anion Gap 4 mmol/L BUN 9 (7-17) mg/dL Creatinine 0.68 (0.52-1.04) mg/dL Est GFR (CKD-EPI)AfAm >90 (>60 ml/min/1.73 sqM) Est GFR (CKD-EPI)NonAf 90 (>60 ml/min/1.73 sqM) Glucose 85 (74-99) mg/dL Calcium 9.2 (8.4-10.2) mg/dL Total Bilirubin 0.4 (0.2-1.3) mg/dL AST 26 (14-36) U/L ALT 17 (4-34) U/L Alkaline Phosphatase 133 H (38-126) U/L C-Reactive Protein (<1.0) mg/dL Total Protein 6.3 (6.3-8.2) g/dL Albumin 3.7 (3.5-5.0) g/dL 03/14/24 Range/Units 16:01 WBC (3.8-10.6) k/uL RBC (3.80-5.40) m/uL Hgb (11.4-16.0) gm/dL Hct (34.0-46.0) % MCV (80.0-100.0) fL MCH (25.0-35.0) pg MCHC (31.0-37.0) g/dL RDW (11.5-15.5) % Plt Count (150-450) k/uL MPV Neutrophils % % Lymphocytes % % Monocytes % % Eosinophils % % Basophils % % Neutrophils # (1.3-7.7) k/uL Lymphocytes # (1.0-4.8) k/uL Monocytes # (0-1.0) k/uL Eosinophils # (0-0.7) k/uL Basophils # (0-0.2) k/uL PT (10.0-12.5) sec INR (<1.2) APTT (22.0-30.0) sec Sodium (137-145) mmol/L Potassium (3.5-5.1) mmol/L Chloride (98-107) mmol/L Carbon Dioxide (22-30) mmol/L Anion Gap mmol/L BUN (7-17) mg/dL Creatinine (0.52-1.04) mg/dL Est GFR (CKD-EPI)AfAm (>60 ml/min/1.73 sqM) Est GFR (CKD-EPI)NonAf (>60 ml/min/1.73 sqM) Glucose (74-99) mg/dL Calcium (8.4-10.2) mg/dL Total Bilirubin (0.2-1.3) mg/dL AST (14-36) U/L ALT (4-34) U/L Alkaline Phosphatase (38-126) U/L C-Reactive Protein 2.6 H (<1.0) mg/dL Total Protein (6.3-8.2) g/dL Albumin (3.5-5.0) g/dL Disposition Clinical Impression: Giant cell arteritis Disposition: ADMITTED IP TO THIS [facility] Condition: Good Is patient prescribed a controlled substance at d/c from ED?: No Referrals: Roz Mayberry MD [Primary Care Provider] - 1-2 days Ramesh Hussein DO [Doctor of Osteopathic Medicine] - 1-2 days Betsy Thakkar DO [STAFF PHYSICIAN] - 1-2 days Time of Disposition: 17:44 Decision Date: 03/14/24 Decision Time: 17:44
[2024-03-14 15:19] LABS: Basophils % (A) 0 %; Eosinophils # (A) 0.3 k/uL (0-0.7); Eosinophils % (A) 5 %; HCT 38.2 % (34.0-46.0); HGB 12.4 gm/dL (11.4-16.0); Lymphocytes # (A) 1.9 k/uL (1.0-4.8); Lymphocytes % (A) 33 %; MCH 29.1 pg (25.0-35.0); MCHC 32.3 g/dL (31.0-37.0); MCV 89.9 fL (80.0-100.0); Mean Platelet Volume 8.1; Monocytes # (A) 0.4 k/uL (0-1.0); Monocytes % (A) 7 %; Neutrophils # (A) 3.1 k/uL (1.3-7.7); Neutrophils % (A) 54 %; Platelet Count 488 k/uL (150-450); RBC 4.25 m/uL (3.80-5.40); RDW 13.5 % (11.5-15.5); WBC 5.7 k/uL (3.8-10.6)
[2024-03-14 15:27] LABS: INR 1.1 (<1.2); Partial Thromboplastin Time 23.6 sec (22.0-30.0); Prothrombin Time 11.8 sec (10.0-12.5)
[2024-03-14 15:32] LABS: ALT 17 U/L (4-34); AST 26 U/L (14-36); African American GFR (CKD) >90 (>60 ml/min/1.73 sqM); Albumin 3.7 g/dL (3.5-5.0); Alkaline Phosphatase 133 U/L (38-126); Anion Gap 4 mmol/L; Blood Urea Nitrogen 9 mg/dL (7-17); Calcium 9.2 mg/dL (8.4-10.2); Carbon Dioxide 30 mmol/L (22-30); Chloride 106 mmol/L (98-107); Glucose 85 mg/dL (74-99); Non-African American GFR(CKD) 90 (>60 ml/min/1.73 sqM); Potassium 3.7 mmol/L (3.5-5.1); Sodium 140 mmol/L (137-145); Total Bilirubin 0.4 mg/dL (0.2-1.3); Total Protein 6.3 g/dL (6.3-8.2)
[2024-03-14] MEDS ORDERED: methylPREDNISolone SOD SUCCI 125 MG/2 ML VIAL IV STA (17:23)
[2024-03-14] MEDS ORDERED: NALOXONE 0.4 MG/ML 1 ML VIAL IV PRN (17:44)
[2024-03-14] MEDS: methylPREDNISolone SOD SUCCIN 1,000 MG in SODIUM CHLORIDE 0.9% 250 ML IVPB STA (18:59)
--- NOTE | 2024-03-14 19:18 | CT ---
EXAMINATION TYPE: CT brain wo con CT DLP: 1143 mGycm, Automated exposure control for dose reduction was used. DATE OF EXAM: 03/14/2024 7:12 PM COMPARISON: CT brain 11/13/2022. CLINICAL INDICATION:Female, 68 years old with history of Headache, neck pain, vision change, elevated CRP, Headache, neck pain, vision change, elevated CRP. TECHNIQUE: Brain: Axial CT images of the brain were obtained with coronal and sagittal reformats created and rev iewed. Contrast used: None. Oral contrast used: None. FINDINGS: Brain: Extra-axial spaces: No abnormal extra-axial fluid collections. Ventricular system: Within normal limits Cerebral parenchyma: No acute intraparenchymal hemorrhage or mass effect. The agee-white junction is well differentiated. Scattered hypoattenuating areas are seen within the white matter. Cerebellum: Unremarkable. Mass effect: No evidence of midline shift. Intracranial vasculature: Atherosclerotic calcifications of the intracranial vessels. Soft tissues: Normal. Calvarium/osseous structures: No depressed skull fracture. Paranasal sinuses and mastoid air cells: Mild scattered paranasal sinus disease. Visualized orbits: Orbital contents are intact. IMPRESSION: 1. No acute intracranial process. 2. Nonspecific white matter changes, likely secondary to chronic small vessel ischemic disease. [facility], , 03/14/2024 7:15 PM
--- NOTE | 2024-03-14 19:21 | CT ---
EXAMINATION TYPE: CT angio head neck CT DLP: 492.9 mGycm, Automated exposure control for dose reduction was used. DATE OF EXAM: 03/14/2024 7:14 PM COMPARISON: CT head same day. CLINICAL INDICATION:Female, 68 years old with history of Headache, neck pain, vision change, elevated CRP; PHH, Headache, neck pain, vision change, elevated CRP. TECHNIQUE: Axially acquired helical CT angiogram of the head and neck was obtained with contrast. Axi al images are supplemented with 3D reconstructions which were post-processed at an independent workst [facility] by [facility]. NASCET criteria used. Contrast used:65 ml mL of Isovue 370 with IV Contrast, Oral contrast used: None. FINDINGS: CTA HEAD: The visualized portions of the internal carotid arteries, middle cerebral arteries, anterior cerebral arteries, and posterior cerebral arteries are patent. The basilar and vertebral arteries are patent. CTA NECK: Right Carotid System: The common carotid artery and external carotid artery are patent. The carotid bifurcation demonstrate s no evidence of hemodynamically significant stenosis. The remaining portions of the internal carotid artery demonstrate normal size without significant narrowing. Left Carotid System: The common carotid artery and external carotid artery are patent. The carotid bifurcation demonstrate s no evidence of hemodynamically significant stenosis. The remaining portions of the internal carotid artery demonstrate normal size without significant narrowing. Vertebral arteries are patent without evidence hemodynamically significant stenosis. There is a three-vessel aortic arch. The origins of the great vessels are patent. No evidence of hemo dynamically significant stenosis. Upper thorax: Unremarkable. IMPRESSION: 1. No evidence of dissection of the cervical internal carotid arteries or vertebral arteries or any e vidence of significant stenosis at the carotid bifurcations. 2. No evidence of intracranial high-grade stenosis or intracranial aneurysm. [facility], , 03/14/2024 7:18 PM
[2024-03-15] MEDS: traMADol 50 MG TAB PO PRN (01:00)
[2024-03-15] MEDS: GABAPENTIN 100 MG CAP PO SCH (01:03)
[2024-03-15] MEDS: PRAVASTATIN SODIUM 20 MG TAB PO SCH (01:03)
[2024-03-15] MEDS: methylPREDNISolone SOD SUCCI 125 MG/2 ML VIAL IV SCH (09:00)
[2024-03-15] MEDS: GABAPENTIN 300 MG CAP PO SCH (09:00)
--- NOTE | 2024-03-15 09:02 | P.GSCN ---
History of Present Illness Consult date: 03/15/24 Reason for Consult: GCA Requesting physician: Suhas Flood History of present illness: This a pleasant 68-year-old female who presented to the emergency department with complaints of left-sided headache/pain for the last 3 weeks duration. She has a past medical history including osteo arthritis, macular degeneration, neuropathy, and varicose veins. Patient states the headache is on the left side of her head starts left frontal and all the way back down to her neck which started about 3 weeks ago following her pulling muscles in her neck while sleeping. She has been following with her PCP and had some outpatient blood work done with inflammatory markers that were elevated. She was asked to come to the hospital to have further blood work and evaluation done. She had elevated sed rate and CRP. Vascular surgery was consulted for giant cell arteritis, possible temporal artery biopsy. Patient also states she has had some vision changes she believes is likely secondary to her macular degeneration however states she is reading she will have to look away or squint and start to refocus since her symptoms began. She follows with Dr. Macias for her macular degeneration. She had a CT of the brain with no acute intracranial process and a CTA of the head and neck that found no evidence of dissection or significant stenosis. Patient states her head is even tender to touch. No visual changes at this time. No nausea or vomiting. Noise does seem to worsen her headache. Patient denies being on any anticoagulation. Review of Systems A 14 point review systems was completed all pertinent positives and negatives as stated in the HPI. Past Medical History Past Medical History: Osteoarthritis (OA) Additional Past Medical History / Comment(s): varicose veins, hx. frequent bronchitis years ago, osteoporosis, macular degeneration, neuropathy History of Any Multi-Drug Resistant Organisms: None Reported Past Surgical History: Joint Replacement, Orthopedic Surgery Additional Past Surgical History / Comment(s): arthroscopic-dion knees and ankles, dion ganglion cysts, left knee replaced August 2015, gastric sleeve 11/23/15, Right meniscus repair, 2021, Right Total Knee - 2022, left hand cyst removal, left wrist surgery, bilateral cataract surgery - 2021 Past Anesthesia/Blood Transfusion Reactions: No Reported Reaction Additional Past Anesthesia/Blood Transfusion Reaction / Comm: PONV after last arthroscopy Past Psychological History: No Psychological Hx Reported Smoking Status: Never smoker Past Alcohol Use History: None Reported Past Drug Use History: None Reported - Past Family History Brother(s) Family Medical History: CVA/TIA, Diabetes Mellitus Father Family Medical History: Cancer, Diabetes Mellitus Sister(s) Family Medical History: Cancer, Fibromyalgia Mother Family Medical History: Dementia, Deep Vein Thrombosis (DVT) Medications and Allergies Home Medications Medication Instructions Recorded Confirmed Type Pravastatin Sodium [Pravachol] 20 mg PO HS 04/07/22 03/14/24 History Vit C/E/Zn/Coppr/Lutein/Zeaxan 1 cap PO BID 04/07/22 03/14/24 History [Preservision Areds 2 Softgel] Gabapentin 300 mg PO TID 10/25/23 03/14/24 History Gabapentin [Neurontin] 100 mg PO HS 10/25/23 03/14/24 History Losartan [Cozaar] 25 mg PO DAILY 10/25/23 03/14/24 History traMADol HCL 50 mg PO TID PRN 10/25/23 03/14/24 History Ergocalciferol [Vitamin D2 (1250 1,250 mcg PO WE 03/14/24 03/14/24 History Mcg = 45939 Iu)] Allergies Allergy/AdvReac Type Severity Reaction Status Date / Time No Known Allergies Allergy Verified 03/14/24 18:15 Surgical - Exam Vital Signs Temp Pulse Resp BP Pulse Ox 98.2 F 82 16 147/87 97 03/14/24 14:10 03/14/24 14:10 03/14/24 14:10 03/14/24 14:10 03/14/24 14:10 General appearance: The patient is alert, oriented, appears in no acute distress. HET: Head is normocephalic and atraumatic. Pupils are equal and reactive. Left-sided tenderness along the temporal and frontal region. Neck: Supple. Heart: Regular. Lungs: Equal expansion, normal respiratory effort. Abdomen: Soft, nontender, nondistended. Extremities: Normal skin color and turgor. Neurological: No focal deficits. Strength and sensation are grossly intact. Results - Labs 03/14/24 14:57 03/14/24 14:57 Abnormal Lab Results - Last 24 Hours (Table) 03/14/24 03/14/24 03/14/24 Range/Units 14:57 14:57 16:01 Plt Count 488 H (150-450) k/uL ESR 87 H (0-30) mm/Hr Alkaline Phosphatase 133 H (38-126) U/L C-Reactive Protein (<1.0) mg/dL 03/14/24 Range/Units 16:01 Plt Count (150-450) k/uL ESR (0-30) mm/Hr Alkaline Phosphatase (38-126) U/L C-Reactive Protein 2.6 H (<1.0) mg/dL Diabetes panel 03/14/24 Range/Units 14:57 Sodium 140 (137-145) mmol/L Potassium 3.7 (3.5-5.1) mmol/L Chloride 106 (98-107) mmol/L Carbon Dioxide 30 (22-30) mmol/L BUN 9 (7-17) mg/dL Creatinine 0.68 (0.52-1.04) mg/dL Glucose 85 (74-99) mg/dL Calcium 9.2 (8.4-10.2) mg/dL AST 26 (14-36) U/L ALT 17 (4-34) U/L Alkaline Phosphatase 133 H (38-126) U/L Total Protein 6.3 (6.3-8.2) g/dL Albumin 3.7 (3.5-5.0) g/dL Thyroid panel 03/14/24 Range/Units 19:07 TSH 1.770 (0.465-4.680) mIU/L Calcium panel 03/14/24 Range/Units 14:57 Calcium 9.2 (8.4-10.2) mg/dL Albumin 3.7 (3.5-5.0) g/dL Pituitary panel 03/14/24 03/14/24 Range/Units 14:57 19:07 Sodium 140 (137-145) mmol/L Potassium 3.7 (3.5-5.1) mmol/L Chloride 106 (98-107) mmol/L Carbon Dioxide 30 (22-30) mmol/L BUN 9 (7-17) mg/dL Creatinine 0.68 (0.52-1.04) mg/dL Glucose 85 (74-99) mg/dL Calcium 9.2 (8.4-10.2) mg/dL TSH 1.770 (0.465-4.680) mIU/L Adrenal panel 03/14/24 Range/Units 14:57 Sodium 140 (137-145) mmol/L Potassium 3.7 (3.5-5.1) mmol/L Chloride 106 (98-107) mmol/L Carbon Dioxide 30 (22-30) mmol/L BUN 9 (7-17) mg/dL Creatinine 0.68 (0.52-1.04) mg/dL Glucose 85 (74-99) mg/dL Calcium 9.2 (8.4-10.2) mg/dL Total Bilirubin 0.4 (0.2-1.3) mg/dL AST 26 (14-36) U/L ALT 17 (4-34) U/L Alkaline Phosphatase 133 H (38-126) U/L Total Protein 6.3 (6.3-8.2) g/dL Albumin 3.7 (3.5-5.0) g/dL - Imaging Comments: CTA head and neck reports no evidence of dissection of the cervical internal ca rotid arteries or vertebral arteries or any evidence of significant stenosis at the carotid bifurcations. No evidence of intracranial high-grade stenosis or intracranial aneurysm. Brain CT reports no acute intracranial process. Nonspecific white matter changes, likely secondary to chronic small vessel ischemic disease. Assessment and Plan Assessment: 1. Ongoing left-sided headache 2. Intermittent visual changes 3. Elevated inflammatory markers Plan: 1. Keep n.p.o. 2. Patient will be scheduled for left-sided temporal artery biopsy 3. Continue with recommendations from neurology and ophthalmology Thank you for this consultation. The impression and plan of care has been dictated as directed. Dr. Ferrell I performed a history and examination of this patient, discussed the same with the dictator. I agree with the dictator's note ,documented as a scribe. Any additional findings or plans will be noted.
[2024-03-15] MEDS ORDERED: DEXTROSE 50% SYRINGE 50 ML IVP PRN ×2 (10:10)
--- NOTE | 2024-03-15 11:22 | P.HPIM ---
History of Present Illness H&P Date: 03/15/24 History of present illness; patient is a 68-year old lady with past medical history significant for hypertension who was sent to the ER by her PCP for abnormal labs. Patient has been following up outpatient with her PCP for her headache and neck pains. Patient had an ESR done in outpatient setting that was found to be elevated. Patient stated that her headache has remained the same and he has been noticing blurring of her left eye. There is no complaint of weakness of any extremity. Denies any loss of consciousness. There is no complaint of chest pain or shortness of breath. Because of elevated ESR, patient was sent to the ER CT head done showed no acute intracranial process CTA head and neck done showed no significant stenosis, aneurysm or thrombus in the intracranial circulation Patient admitted to internal medicine service REVIEW OF SYSTEMS: CONSTITUTIONAL: No fever, no malaise, no fatigue. HEENT: No recent visual problems or hearing problems. Denied any sore throat. CARDIOVASCULAR: No chest pain, orthopnea, PND, no palpitations, no syncope. PULMONARY: No shortness of breath, no cough, no hemoptysis. GASTROINTESTINAL: No diarrhea, no nausea, no vomiting, no abdominal pain. NEUROLOGICAL: As mentioned above HEMATOLOGICAL: Denies any bleeding or petechiae. GENITOURINARY: Denies any burning micturition, frequency, or urgency. MUSCULOSKELETAL/RHEUMATOLOGICAL: Denies any joint pain, swelling, or any muscle pain. ENDOCRINE: Denies any polyuria or polydipsia. The rest of the 14-point review of systems is negative. PHYSICAL EXAMINATION: GENERAL: The patient is alert and oriented x3, not in any acute distress. Well developed, well nourished. HEENT: Pupils are round and equally reacting to light. EOMI. No scleral icterus. No conjunctival pallor. Normocephalic, atraumatic. No pharyngeal erythema. No thyromegaly. CARDIOVASCULAR: S1 and S2 present. No murmurs, rubs, or gallops. PULMONARY: Chest is clear to auscultation, no wheezing or crackles. ABDOMEN: Soft, nontender, nondistended, normoactive bowel sounds. No palpable organomegaly. MUSCULOSKELETAL: No joint swelling or deformity. EXTREMITIES: No cyanosis, clubbing, or pedal edema. NEUROLOGICAL: Gross neurological examination did not reveal any focal deficits. SKIN: No rashes. Assessment and plan Possible temporal arteritis Headache Elevated ESR Hyperlipidemia Monitor vital signs Monitor CBC Monitor CMP Results of CT head and CTA head and neck noted. Started patient on IV Solu-Medrol Ordered blood glucose monitoring for suspected hyperglycemia secondary to steroids Resume home meds Consult vascular surgery for temporal artery biopsy Neurology consulted Labs and medication were reviewed.. Continue same treatment. Continue with symptomatic treatment. Resume home medication. Monitor labs and vitals. DVT and GI prophylaxis. Further recommendations as per clinical course of the patient Dictation was produced using [employer] dictation software. please excuse any grammatical, word or spelling errors. Past Medical History Past Medical History: Osteoarthritis (OA) Additional Past Medical History / Comment(s): varicose veins, hx. frequent bronchitis years ago, osteoporosis, macular degeneration, neuropathy History of Any Multi-Drug Resistant Organisms: None Reported Past Surgical History: Joint Replacement, Orthopedic Surgery Additional Past Surgical History / Comment(s): arthroscopic-dion knees and ankles, dion ganglion cysts, left knee replaced August 2015, gastric sleeve 11/23/15, Right meniscus repair, 2021, Right Total Knee - 2022, left hand cyst removal, left wrist surgery, bilateral cataract surgery - 2021 Past Anesthesia/Blood Transfusion Reactions: No Reported Reaction Additional Past Anesthesia/Blood Transfusion Reaction / Comment(s): PONV after last arthroscopy Past Psychological History: No Psychological Hx Reported Smoking Status: Never smoker Past Alcohol Use History: None Reported Past Drug Use History: None Reported - Past Family History Brother(s) Family Medical History: CVA/TIA, Diabetes Mellitus Father Family Medical History: Cancer, Diabetes Mellitus Sister(s) Family Medical History: Cancer, Fibromyalgia Mother Family Medical History: Dementia, Deep Vein Thrombosis (DVT) Medications and Allergies Home Medications Medication Instructions Recorded Confirmed Type Pravastatin Sodium [Pravachol] 20 mg PO HS 04/07/22 03/14/24 History Vit C/E/Zn/Coppr/Lutein/Zeaxan 1 cap PO BID 04/07/22 03/14/24 History [Preservision Areds 2 Softgel] Gabapentin 300 mg PO TID 10/25/23 03/14/24 History Gabapentin [Neurontin] 100 mg PO HS 10/25/23 03/14/24 History Losartan [Cozaar] 25 mg PO DAILY 10/25/23 03/14/24 History traMADol HCL 50 mg PO TID PRN 10/25/23 03/14/24 History Ergocalciferol [Vitamin D2 (1250 1,250 mcg PO WE 03/14/24 03/14/24 History Mcg = 91121 Iu)] Allergies Allergy/AdvReac Type Severity Reaction Status Date / Time No Known Allergies Allergy Verified 03/14/24 18:15 Physical Exam Vitals: Vital Signs Temp Pulse Resp BP Pulse Ox 03/15/24 09:41 87 17 155/88 99 03/15/24 06:04 97.4 F L 16 149/95 95 03/15/24 01:20 90 16 127/72 94 L 03/14/24 21:50 97.6 F 83 16 137/80 97 03/14/24 20:00 98.2 F 77 18 136/76 95 03/14/24 18:02 76 18 116/75 98 03/14/24 17:00 79 18 120/78 98 03/14/24 15:24 77 18 112/73 99 03/14/24 14:10 98.2 F 82 16 147/87 97 Results CBC & Chem 7: 03/14/24 14:57 03/14/24 14:57 Labs: Abnormal Lab Results - Last 24 Hours (Table) 03/14/24 03/14/24 03/14/24 Range/Units 14:57 14:57 16:01 Plt Count 488 H (150-450) k/uL ESR 87 H (0-30) mm/Hr Alkaline Phosphatase 133 H (38-126) U/L C-Reactive Protein (<1.0) mg/dL 03/14/24 Range/Units 16:01 Plt Count (150-450) k/uL ESR (0-30) mm/Hr Alkaline Phosphatase (38-126) U/L C-Reactive Protein 2.6 H (<1.0) mg/dL
[2024-03-15] MEDS: INSULIN ASPART (NovoLOG) 100 UNIT/ML VIAL SQ SCH (11:33)
[2024-03-15] MEDS: methylPREDNISolone SOD SUCCIN 1,000 MG in SODIUM CHLORIDE 0.9% 250 ML IVPB SCH (11:38)
--- NOTE | 2024-03-15 13:26 | P.CNNES ---
History of Present Illness Consult date: 03/15/24 Requesting physician: Suhas Flood Reason for Consult: [facility] History of Present Illness: This is a 68-year-old woman who present emergency department per the request of her primary care because of her headache and elevated inflammatory markers. Stated she noticed that initially she was having right neck pain March 02 upon waking up and lasted for 1-week and had left neck pain. Initially she came to the hospital and she was given muscle relaxant on March 04, 2024 and took a few days of the muscle relaxant sample but was make her very sleepy. So she stopped taking the muscle relaxant medication but does not recall the name. She also noticed headache over the left frontal temporal pain towards the end of February 2024. She feels it is tender to touch. She has underlying history of macular degeneration and she feels like her vision is blurry in the last 2 to 3 weeks. She states that the headache over the left frontal temporal region she describes it as painful and rates it 6-7 out of 10, constant denies photophobia does have some phonophobia. Denies any nausea vomiting. Denies any weakness n umbness. Denies any difficulty with the speech or swallowing. Denies any history of stroke. She was seen by her primary care physician and he ordered ESR and it was elevated as high as 99. Stated that she follows up with her eyelet cutter Dr. Macias who notified her in January that her vision was worsening and he told her that is likely due to her macular degeneration according to the patient. She gets eye injection for her macular degeneration of both eyes. Some of the workup during this hospital visit consisted of: ESR in our facility is 87 CRP is 2.6. TSH is 1.[address] of the head is reported as no acute intracranial process. Nonspecific white matter changes, likely secondary due to chronic small vessel ischemic disease. I personally reviewed the CT and agree with the report. CT angiography of the head and neck is reported as no evidence of dissection of cervical internal carotid artery or vertebral artery or any evidence of signal stenosis at the carotid bifurcation. No evidence of intracranial high-grade stenosis or intracranial aneurysm. Review of Systems As per HPI. Past Medical History Past Medical History: Osteoarthritis (OA) Additional Past Medical History / Comment(s): varicose veins, hx. frequent bronchitis years ago, osteoporosis, macular degeneration, neuropathy History of Any Multi-Drug Resistant Organisms: None Reported Past Surgical History: Joint Replacement, Orthopedic Surgery Additional Past Surgical History / Comment(s): arthroscopic-dion knees and ankles, dion ganglion cysts, left knee replaced August 2015, gastric sleeve 11/23/15, Right meniscus repair, 2021, Right Total Knee - 2022, left hand cyst removal, left wrist surgery, bilateral cataract surgery - 2021 Past Anesthesia/Blood Transfusion Reactions: No Reported Reaction Additional Past Anesthesia/Blood Transfusion Reaction / Comment(s): PONV after last arthroscopy Past Psychological History: No Psychological Hx Reported Smoking Status: Never smoker Past Alcohol Use History: None Reported Past Drug Use History: None Reported - Past Family History Brother(s) Family Medical History: CVA/TIA, Diabetes Mellitus Father Family Medical History: Cancer, Diabetes Mellitus Sister(s) Family Medical History: Cancer, Fibromyalgia Mother Family Medical History: Dementia, Deep Vein Thrombosis (DVT) Medications and Allergies Home Medications Medication Instructions Recorded Confirmed Type Pravastatin Sodium [Pravachol] 20 mg PO HS 04/07/22 03/14/24 History Vit C/E/Zn/Coppr/Lutein/Zeaxan 1 cap PO BID 04/07/22 03/14/24 History [Preservision Areds 2 Softgel] Gabapentin 300 mg PO TID 10/25/23 03/14/24 History Gabapentin [Neurontin] 100 mg PO HS 10/25/23 03/14/24 History Losartan [Cozaar] 25 mg PO DAILY 10/25/23 03/14/24 History traMADol HCL 50 mg PO TID PRN 10/25/23 03/14/24 History Ergocalciferol [Vitamin D2 (1250 1,250 mcg PO WE 03/14/24 03/14/24 History Mcg = 33120 Iu)] Allergies Allergy/AdvReac Type Severity Reaction Status Date / Time No Known Allergies Allergy Verified 03/14/24 18:15 Physical Examination - Vital Signs Vital Signs: Vital Signs Temp Pulse Resp BP Pulse Ox 03/15/24 09:41 87 17 155/88 99 03/15/24 06:04 97.4 F L 16 149/95 95 03/15/24 01:20 90 16 127/72 94 L 03/14/24 21:50 97.6 F 83 16 137/80 97 03/14/24 20:00 98.2 F 77 18 136/76 95 03/14/24 18:02 76 18 116/75 98 03/14/24 17:00 79 18 120/78 98 03/14/24 15:24 77 18 112/73 99 03/14/24 14:10 98.2 F 82 16 147/87 97 GENERAL: The patient is sitting on side of bed and is in mild acute distress. HENT: Tender to touch over the left frontotemporal region. NEUROLOGICAL: Higher mental function: The patient is awake, alert, oriented to self, place and time. Patient is following commands. No aphasia and no neglect. Cranial nerves: The pupils are round, equal and reactive to light and accommodation. Visual mora are full to confrontation throughout. Extraocular movement is intact no nystagmus is noted. Facial sensation is normal to touch throughout. The facial strength is normal throughout. Hearing is mild to moderately decreased bilaterally to hand rub. Tongue is midline and moved [id number] without any difficulty. No dysarthria is noted. Shoulder shrug is somewhat limited because of paint but has at least 4+ to 5-. Motor: Gait is slow walk without assistance. The strength is 5 over 5 throughout. Normal tone and bulk. Cerebellum: Normal finger to nose bilaterally. Sensation: Sensation is normal to touch throughout. Reflexes (right/left): 2+ throughout. Plantars are mute bilaterally. Results - Laboratory Findings CBC and BMP: 03/14/24 14:57 03/14/24 14:57 Abnormal Lab Findings: Abnormal Labs 03/14/24 03/14/24 03/14/24 14:57 14:57 16:01 Plt Count 488 H ESR 87 H Alkaline Phosphatase 133 H C-Reactive Protein 03/14/24 16:01 Plt Count ESR Alkaline Phosphatase C-Reactive Protein 2.6 H Assessment and Plan Assessment: This is a 68-year-old woman who is having headache and tender to touch over the left side of the frontal temporal region for the past 2 to 3 weeks with worsening blurry vision. She was sent by her primary care because of headache and elevated ESR as high as 99. Worsening of visual disturbance with headache, tender to touch over the left, elevated ESR is likely giant cell arteritis History of macular degeneration Underlying history of hypertension History of neuropathy in the right lower extremity History of right knee replacement Plan: Patient was given IV Solu-Medrol 1 g yesterday. I will continue the IV Solu- Medrol 1gm daily for total 3 doses so today would be day 2 out of 3. After that recommend placing the patient on prednisone 60 mg daily and taper the dose. Ordered MRI of the brain Vascular surgery team is consulted for temporal artery biopsy Patient is on GI prophylaxis. Will defer glucose during an correction to the primary team Will defer the rest of the medical management to primary team and other specialist The plan discussed with the patient and the primary team Thank you for the consultation Dr. Rodrigues with resume neurology service tomorrow AM and this Monday Dr. Jasper ku will resume service. Time with Patient: Greater than 30
[2024-03-15] MEDS: ONDANSETRON 4 MG/2 ML VIAL IVP PRN (14:09)
[2024-03-15] MEDS: LACTATED RINGERS 1,000 ML BAG IV STA (14:09)
[2024-03-15] MEDS: IV FLUID CONTINUATION 1,000 ML IV ONE (14:16)
[2024-03-15] MEDS ORDERED: MIDAZOLAM 2 MG/2 ML VIAL ONE (15:03)
[2024-03-15] MEDS ORDERED: fentaNYL (PF) 50 MCG/ML 2 ML AMP ONE (15:03)
[2024-03-15] MEDS ORDERED: PROPOFOL 10 MG/ML 20 ML VIAL IV ONE (15:03)
[2024-03-15] MEDS: LIDOCAINE 1% INJ 10MG/ML (20 ML MDV) SQ ONE (15:23)
--- NOTE | 2024-03-15 16:02 | P.OP ---
Date of Procedure: 03/15/24 Description of Procedure: Preoperative diagnosis: Headaches, rule out temporal arteritis Postoperative diagnosis: Same Procedure: Left temporal artery biopsy Surgeon: Betsy Thakkar D.O. EBL: Less than 5 mL IV fluids: See anesthesia records Urine output: Not measured Drains: None Complications: None immediately apparent Condition: Stable to recovery Operative indication and findings: Patient is a 68-year-old female who recently began having increasing and worsening headaches worse on the left. Through the evaluation and workup was recommended undergo temporal artery biopsy. Risks and benefits were discussed. They present for intervention today. Procedure in detail: The patient was taken to the operative suite and placed in supine position. The side of the face was prepped and draped in usual sterile fashion. A preprocedure timeout was performed, all parties are in agreement. The area of the greatest pulse was anesthetized at the temporal region. Incision was made and carried onto the subcuticular tissue using electrocautery. The artery was identified. It was dissected free proximally and distally. It was ligated with 3-0 silk ties. The 1.5 cm portion of the artery was excised and sent for pathology. The area was then irrigated. Hemostasis was achieved electrocautery. The deep dermal tissues were reapproximated with interrupted sutures of 4-0 Vicryl. The skin was reprepped with running 5-0 Monocryl in subcu cuticular fashion. Glue was placed
--- NOTE | 2024-03-15 16:21 | MR ---
EXAMINATION TYPE: MR brain wo/w con DATE OF EXAM: 03/15/2024 1:56 PM COMPARISON: 03/14/2024. CLINICAL INDICATION: Female, 68 years old with history of headache with visual changes; PHH, Headache with visual changes TECHNIQUE: Multi planar, multi sequence imaging was performed through the brain including: T1, T2, In version recovery, susceptibility weighted imaging and gradient echo imaging and Diffusion weighted im aging. The patient was then given intravenous contrast and multi planar, T1 fat-saturation images wer e obtained. IV Contrast: 9 mL Gadobutrol FINDINGS: The agee-white junctions, ventricular system, basal cisterns appear unremarkable. Diffusion-weighted imaging shows no evidence of restricted diffusion to suggest acute/subacute infarct. Intracranial ar terial flow voids are maintained. Midline structures show no abnormality. Scattered foci of high T2 s ignal intensity are seen within the periventricular white matter. The susceptibility weighted images do not reveal any evidence for micro-hemorrhage. After administration of gadolinium, no abnormal enha ncement is seen. The bone marrow signal is within normal limits. Paranasal sinuses and mastoid air cells: No significant paranasal sinus disease. Visualized orbits: Bilateral aphakia IMPRESSION: 1. No evidence of intracranial mass, acute/subacute infarct, or abnormal enhancement. 2. Nonspecific white matter changes, likely related to small vessel ischemic disease. [facility], , 03/15/2024 4:19 PM
[2024-03-15 17:44] LABS: Glucose,Whole Blood 147 mg/dL (70-110)
[2024-03-15 20:13] LABS: Glucose,Whole Blood 154 mg/dL (70-110)
[2024-03-16 05:41] LABS: Glucose,Whole Blood 150 mg/dL (70-110)
[2024-03-16] MEDS: PANTOPRAZOLE 40 MG/10 ML VIAL IVP SCH (08:43)
[2024-03-16] MEDS: LOSARTAN 25 MG TAB PO SCH (08:43)
[2024-03-16 11:41] LABS: Glucose,Whole Blood 192 mg/dL (70-110)
--- NOTE | 2024-03-16 13:07 | P.PN ---
Subjective Progress Note Date: 03/16/24 The patient is seen in neurologic follow-up on March 16, 2024, in collaboration with Chanelle Mo, via teleneurology. The patient reports that she is feeling better today. Her headache is almost no nexistent, since the initiation of steroids. She does continue to have temporal artery tenderness. She denies changes in vision and vision loss. Objective - Vital Signs Vital signs: Vital Signs Temp 97.4 F L 03/16/24 07:00 Pulse 66 03/16/24 07:00 Resp 15 03/16/24 07:00 BP 126/78 03/16/24 07:00 Pulse Ox 95 03/16/24 07:00 FiO2 Intake & Output 03/15/24 03/16/24 03/16/24 18:59 06:59 18:59 Intake Total 300 Output Total 5 Balance 295 Weight 90 kg Intake: IV 300 Output: Estimated Blood Loss 5 Other: # Voids 2 - Exam General: The patient is reclining in the bed. She is well-nourished, well- developed and in no acute distress. HEENT: Head is atraumatic, normocephalic. There is tenderness to palpation of the left temporal artery. Neurological examination Mental status: The patient is awake, alert and oriented x 3. Her speech is clear. There is no dysarthria or aphasia. Cranial nerves: Pupils are equal at 3 mm and reactive. Other cranial nerves are intact. Motor: Strength is 5/5 throughout. - Labs CBC & Chem 7: 03/14/24 14:57 03/14/24 14:57 Labs: Abnormal Lab Results - Last 24 Hours (Table) 03/15/24 03/15/24 03/16/24 Range/Units 17:42 20:11 05:38 POC Glucose (mg/dL) 147 H 154 H 150 H (70-110) mg/dL Assessment and Plan Assessment: 1. Worsening of visual disturbance with headache, tender to touch over the left, elevated ESR is likely giant cell arteritis-symptoms have improved today 2. History of macular degeneration 3. Underlying history of hypertension 4. History of neuropathy in the right lower extremity 5. History of right knee replacemen Plan: 1. Patient was given IV Solu-Medrol 1 g 2 days ago. It will be continued for total of 3 doses. After that recommend placing the patient on prednisone 60 mg daily and taper the dose, over 1 to 2 months, at least 2. Ordered MRI of the brain 3. Vascular surgery team performed temporal artery biopsy, results are pending 4. Patient is on GI prophylaxis. 5. Will defer glucose during an correction to the primary team 6. Will defer the rest of the medical management to primary team and other specialist 7. Once the patient is medically stable, she may be discharged, from a neurological standpoint. She is advised to follow-up with her family doctor or outpatient neurologist regarding steroid taper and temporal artery biopsy results. Time with Patient: Greater than 30 (35 minutes were spent caring for this patient today including, obtaining history, examining the patient, reviewing imaging, chart documentation, labs, placing orders and creating this note)
--- NOTE | 2024-03-16 13:30 | P.PN ---
Subjective Progress Note Date: 03/16/24 patient is a 68-year old lady with past medical history significant for hypertension who was sent to the ER by her PCP for abnormal labs. Patient has been following up outpatient with her PCP for her headache and neck pains. Patient had an ESR done in outpatient setting that was found to be elevated. Perfecto ulloa stated that her headache has remained the same and he has been noticing blurring of her left eye. There is no complaint of weakness of any extremity. Denies any loss of consciousness. There is no complaint of chest pain or shortness of breath. Because of elevated ESR, patient was sent to the ER CT head done showed no acute intracranial process CTA head and neck done showed no significant stenosis, aneurysm or thrombus in the intracranial circulation Patient admitted to internal medicine service 03/16. Patient seen and examined. Underwent left temporal artery biopsy by vascular surgery. Currently on IV Solu-Medrol REVIEW OF SYSTEMS: CONSTITUTIONAL: No fever, no malaise,. CARDIOVASCULAR: No chest pain, no palpitations, no syncope. PULMONARY: No shortness of breath, no cough, GASTROINTESTINAL: No diarrhea, no nausea, no vomiting, no abdominal pain. NEUROLOGICAL: No headaches, no weakness, PHYSICAL EXAMINATION: GENERAL: The patient is alert and oriented x3, not in any acute distress. Well developed, well nourished. HEENT: Pupils are round and equally reacting to light. EOMI. No scleral icterus. No conjunctival pallor. Normocephalic, atraumatic. No pharyngeal erythema. No thyromegaly. CARDIOVASCULAR: S1 and S2 present. No murmurs, rubs, or gallops. PULMONARY: Chest is clear to auscultation, no wheezing or crackles. ABDOMEN: Soft, nontender, nondistended, normoactive bowel sounds. No palpable organomegaly. MUSCULOSKELETAL: No joint swelling or deformity. EXTREMITIES: No cyanosis, clubbing, or pedal edema. NEUROLOGICAL: Gross neurological examination did not reveal any focal deficits. SKIN: No rashes. Assessment and plan Possible temporal arteritis Headache Elevated ESR Hyperlipidemia Monitor vital signs Monitor CBC Monitor CMP Results of CT head and CTA head and neck noted. Continue IV Solu-Medrol Continue blood glucose monitoring for suspected hyperglycemia secondary to steroids Status post temporal artery biopsy by vascular surgery Neurology following Labs and medication were reviewed.. Continue same treatment. Continue with symptomatic treatment. Resume home medication. Monitor labs and vitals. DVT and GI prophylaxis. Further recommendations as per clinical course of the patient Dictation was produced using [employer] dictation software. please excuse any grammatical, word or spelling errors. Objective - Vital Signs Vital signs: Vital Signs Temp 97.4 F L 03/16/24 07:00 Pulse 66 03/16/24 07:00 Resp 15 03/16/24 07:00 BP 126/78 03/16/24 07:00 Pulse Ox 95 03/16/24 07:00 FiO2 Intake & Output 03/15/24 03/16/24 03/16/24 18:59 06:59 18:59 Intake Total 300 Output Total 5 Balance 295 Weight 90 kg Intake: IV 300 Output: Estimated Blood Loss 5 Other: # Voids 2 - Labs CBC & Chem 7: 03/14/24 14:57 03/14/24 14:57 Labs: Abnormal Lab Results - Last 24 Hours (Table) 03/15/24 03/15/24 03/16/24 Range/Units 17:42 20:11 05:38 POC Glucose (mg/dL) 147 H 154 H 150 H (70-110) mg/dL
[2024-03-16 17:21] LABS: Glucose,Whole Blood 200 mg/dL (70-110)
[2024-03-16 20:48] LABS: Glucose,Whole Blood 213 mg/dL (70-110)
[2024-03-17 05:56] LABS: Glucose,Whole Blood 96 mg/dL (70-110)
[2024-03-17 11:56] LABS: Glucose,Whole Blood 107 mg/dL (70-110)
--- NOTE | 2024-03-17 12:58 | P.DS ---
Providers Date of admission: 03/14/24 17:47 Expected date of discharge: 03/17/24 Attending physician: Adriane Palacios Consults: 03/14/24 17:44 Consult Physician Stat Consulting Provider: Greg Hussein Consult Reason/Comments: GCA Do you want consulting provider notified?: Already Contacted Consult Physician Stat Consulting Provider: Betsy Thakkar Consult Reason/Comments: GCA Do you want consulting provider notified?: Already Contacted 03/14/24 17:48 Consult Physician Stat Consulting Provider: Osman Singh Consult Reason/Comments: GCA Do you want consulting provider notified?: Yes Primary care physician: [facility] Course: Discharge diagnoses; Possible temporal arteritis Headache Elevated ESR Hyperlipidemia Hospital course; patient is a 68-year old lady with past medical history significant for hypertension who was sent to the ER by her PCP for abnormal labs. Patient has been following up outpatient with her PCP for her headache and neck pains. Patient had an ESR done in outpatient setting that was found to be elevated. Patient stated that her headache has remained the same and he has been noticing blurring of her left eye. There is no complaint of weakness of any extremity. Denies any loss of consciousness. There is no complaint of chest pain or shortness of breath. Because of elevated ESR, patient was sent to the ER CT head done showed no acute intracranial process CTA head and neck done showed no significant stenosis, aneurysm or thrombus in the intracranial circulation Patient admitted to internal medicine service 03/16. Patient seen and examined. Underwent left temporal artery biopsy by vascular surgery. Currently on IV Solu-Medrol 03/17. Patient seen and examined. MRI brain done showed no evidence of a intracranial mass, acute/subacute infarct. Neurology recommended discharging patient on 60 mg prednisone for 2 weeks followed by 10 mg decrease every 2 week. Further tapering of prednisone to be determined by neurology outpatient. Patient to follow-up on temporal artery biopsy results by PCP PHYSICAL EXAMINATION: GENERAL: The patient is alert and oriented x3, not in any acute distress. Well developed, well nourished. HEENT: Pupils are round and equally reacting to light. EOMI. No scleral icterus. No conjunctival pallor. Normocephalic, atraumatic. No pharyngeal erythema. No thyromegaly. CARDIOVASCULAR: S1 and S2 present. No murmurs, rubs, or gallops. PULMONARY: Chest is clear to auscultation, no wheezing or crackles. ABDOMEN: Soft, nontender, nondistended, normoactive bowel sounds. No palpable organomegaly. MUSCULOSKELETAL: No joint swelling or deformity. EXTREMITIES: No cyanosis, clubbing, or pedal edema. NEUROLOGICAL: Gross neurological examination did not reveal any focal deficits. SKIN: No rashes. Dictation was produced using [employer] dictation software. please excuse any grammatical, word or spelling errors. Patient Condition at Discharge: Good Plan - Discharge Summary Discharge Rx Participant: Yes New Discharge Prescriptions: New predniSONE [Deltasone] 60 mg PO DAILY 14 Days #42 tab Calcium Carb-Vit D 250Mg-125Un [Oscal 250+D 3.125 Mcg (125 Iu)] 1 each PO BID 30 Days #30 tablet Pantoprazole Sodium [Protonix] 20 mg PO DAILY 30 Days #30 tab Continue Pravastatin Sodium [Pravachol] 20 mg PO HS Gabapentin [Neurontin] 100 mg PO HS Gabapentin 300 mg PO TID Vit C/E/Zn/Coppr/Lutein/Zeaxan [Preservision Areds 2 Softgel] 1 cap PO BID traMADol HCL 50 mg PO TID PRN PRN Reason: Pain Losartan [Cozaar] 25 mg PO DAILY Ergocalciferol [Vitamin D2 (1250 Mcg = 97258 Iu)] 1,250 mcg PO WE Discharge Medication List Pravastatin Sodium [Pravachol] 20 mg PO HS 04/07/22 [History] Vit C/E/Zn/Coppr/Lutein/Zeaxan [Preservision Areds 2 Softgel] 1 cap PO BID 04/07/22 [History] Gabapentin 300 mg PO TID 10/25/23 [History] Gabapentin [Neurontin] 100 mg PO HS 10/25/23 [History] Losartan [Cozaar] 25 mg PO DAILY 10/25/23 [History] traMADol HCL 50 mg PO TID PRN 10/25/23 [History] Ergocalciferol [Vitamin D2 (1250 Mcg = 67360 Iu)] 1,250 mcg PO WE 03/14/24 [History] Calcium Carb-Vit D 250Mg-125Un [Oscal 250+D 3.125 Mcg (125 Iu)] 1 each PO BID 30 Days #30 tablet 03/17/24 [Rx] Pantoprazole Sodium [Protonix] 20 mg PO DAILY 30 Days #30 tab 03/17/24 [Rx] predniSONE [Deltasone] 60 mg PO DAILY 14 Days #42 tab 03/17/24 [Rx] Follow up Appointment(s)/Referral(s): Betsy Thakkar DO [STAFF PHYSICIAN] - 1-2 days Ramesh Hussein DO [Doctor of Osteopathic Medicine] - 1-2 days Roz Mayberry MD [Primary Care Provider] - 1-2 days Gatito Polanco MD [Medical Doctor] - 1 Week Activity/Diet/Wound Care/Special Instructions: Take 60 mg daily for 2 weeks, following that patient needs to decrease prednisone by 10 mg daily every 2 weeks, further tapering will be adjusted by neurology Discharge Disposition: HOME SELF-CARE
[2024-03-17] MEDS: predniSONE 20 MG TAB PO SCH (13:39)
[2024-03-17 17:29] LABS: Glucose,Whole Blood 111 mg/dL (70-110)
[2024-03-17 21:28] LABS: Glucose,Whole Blood 218 mg/dL (70-110)
[2024-03-18 07:09] LABS: Glucose,Whole Blood 92 mg/dL (70-110)
[2024-03-18 07:36] VITALS: BP 125/82; PULSE 86; RESP 15; TEMP 97.7
--- NOTE | 2024-03-18 12:01 | P.PN ---
Subjective Progress Note Date: 03/18/24 Principal diagnosis: Presumed temporal arteritis status post temporal artery biopsy. Ms. Mccray is a 68-year-old female with history of macular degeneration, osteoarthritis, peripheral neuropathy, and osteoporosis. She was admitted to [facility] on March 14 with complaints of headache as well as elevated erythrocyte sedimentation rate at 81. She has a right neck pain on the left March 02 for approximately a week and was reporting headache in the left temporal area as well as blurry vision for the past 2 to 3 weeks. She was placed on Solu-Medrol and received 1 g for 3 days and underwent a temporal artery biopsy on March 15. Her headache is decreased and is absent now with prednisone 60 mg daily. On exam she has no evidence of temporal artery tenderness. She is due for discharge today and is cleared from neurology for discharge. Assessment: Ms. Mccray is a 68-year-old female with likely temporal arteritis status post temporal artery biopsy her headache is improved completely on steroids. Plan: 1. The patient should continue on prednisone 60 mg for the next 2 weeks and then plan has been made for a taper of 10 mg every 2 weeks. The patient been informed that if her headache gets worse she should increase her prednisone and/or come to the hospital again. 2. Patient should follow-up with her primary care physician to check on the results of the temporal artery biopsy. She states she has a neurologist as well for the peripheral neuropathy may be able to assist in this management. 3. The patient is again cleared by neurology to be discharged today however she should she remains in house neurology will continue to follow her. Objective - Vital Signs Vital signs: Vital Signs Temp 97.7 F 03/18/24 07:00 Pulse 86 03/18/24 07:00 Resp 15 03/18/24 07:00 BP 125/82 03/18/24 07:00 Pulse Ox 96 03/18/24 07:00 FiO2 Intake & Output 03/17/24 03/18/24 03/18/24 18:59 06:59 18:59 Other: Voiding Method Toilet Toilet # Voids 3 2 - Labs CBC & Chem 7: 03/14/24 14:57 03/14/24 14:57 Labs: Abnormal Lab Results - Last 24 Hours (Table) 03/17/24 03/17/24 Range/Units 17:28 21:27 POC Glucose (mg/dL) 111 H 218 H (70-110) mg/dL
[2024-03-18 12:29] LABS: Glucose,Whole Blood 102 mg/dL (70-110)
--- NOTE | 2024-03-25 06:22 | P.DS ---
Providers Date of admission: 03/14/24 17:47 Expected date of discharge: 03/18/24 Attending physician: Adriane Palacios Consults: 03/14/24 17:44 Consult Physician Stat Consulting Provider: Greg Hussein Consult Reason/Comments: GCA Do you want consulting provider notified?: Already Contacted Consult Physician Stat Consulting Provider: Betsy Thakkar Consult Reason/Comments: GCA Do you want consulting provider notified?: Already Contacted 03/14/24 17:48 Consult Physician Stat Consulting Provider: Osman Singh Consult Reason/Comments: GCA Do you want consulting provider notified?: Yes Primary care physician: [facility] Course: Final diagnosis Possible temporal arteritis Headache Elevated ESR Hyperlipidemia Obesity with a BMI of 30.2 GI prophylaxis DVT prophylaxis Full code Hospital course; patient is a 68-year old lady with past medical history significant for hypertension who was sent to the ER by her PCP for abnormal labs. Patient has been following up outpatient with her PCP for her headache and neck pains. Patient had an ESR done in outpatient setting that was found to be elevated. Patient stated that her headache has remained the same and he has been noticing blurring of her left eye. There is no complaint of weakness of any extremity. Denies any loss of consciousness. There is no complaint of chest pain or shortness of breath. Because of elevated ESR, patient was sent to the ER CT head done showed no acute intracranial process CTA head and neck done showed no significant stenosis, aneurysm or thrombus in the intracranial circulation Patient admitted to internal medicine service 03/16. Patient seen and examined. Underwent left temporal artery biopsy by vascular surgery. Currently on IV Solu-Medrol 03/17. Patient seen and examined. MRI brain done showed no evidence of a intracranial mass, acute/subacute infarct. Neurology recommended discharging patient on 60 mg prednisone for 2 weeks followed by 10 mg decrease every 2 week. Further tapering of prednisone to be determined by neurology outpatient. Patient to follow-up on temporal artery biopsy results by PCP 03/18/2024 Patient was monitored overnight and seen and evaluated by neurology this morning and has been cleared for discharge. Patient to continue prednisone taper and follow-up with her primary care neurologist Dr. Polanco outpatient. Patient reports to feeling improved and would like to go home. Please refer to other consultation notes for further HPI. PHYSICAL EXAMINATION: GENERAL: The patient is alert and oriented x3, not in any acute distress. Well developed, well nourished. HEENT: Pupils are round and equally reacting to light. EOMI. No scleral icterus. No conjunctival pallor. Normocephalic, atraumatic. No pharyngeal erythema. No thyromegaly. CARDIOVASCULAR: S1 and S2 present. No murmurs, rubs, or gallops. PULMONARY: Chest is clear to auscultation, no wheezing or crackles. ABDOMEN: Soft, nontender, nondistended, normoactive bowel sounds. No palpable organomegaly. MUSCULOSKELETAL: No joint swelling or deformity. EXTREMITIES: No cyanosis, clubbing, or pedal edema. NEUROLOGICAL: Gross neurological examination did not reveal any focal deficits. SKIN: No rashes. Please refer to medication reconciliation sheet for further medications The impression and plan of care has been dictated by Hellen Harp, Nurse Practitioner as directed. Dr. Daquan MD I have performed a history and examination and MDM of this patient, discussed the same with the dictator, and agree with the dictator's assessment and plan as written ,documented as a scribe. Based on total visit time, I have performed more than 50% of the visit. Patient Condition at Discharge: Good Plan - Discharge Summary Discharge Rx Participant: Yes New Discharge Prescriptions: New predniSONE [Deltasone] 60 mg PO DAILY 14 Days #42 tab Calcium Carb-Vit D 250Mg-125Un [Oscal 250+D 3.125 Mcg (125 Iu)] 1 each PO BID 30 Days #30 tablet Pantoprazole Sodium [Protonix] 20 mg PO DAILY 30 Days #30 tab Continue Pravastatin Sodium [Pravachol] 20 mg PO HS Gabapentin [Neurontin] 100 mg PO HS Gabapentin 300 mg PO TID Vit C/E/Zn/Coppr/Lutein/Zeaxan [Preservision Areds 2 Softgel] 1 cap PO BID traMADol HCL 50 mg PO TID PRN PRN Reason: Pain Losartan [Cozaar] 25 mg PO DAILY Ergocalciferol [Vitamin D2 (1250 Mcg = 54242 Iu)] 1,250 mcg PO WE Discharge Medication List Pravastatin Sodium [Pravachol] 20 mg PO HS 04/07/22 [History] Vit C/E/Zn/Coppr/Lutein/Zeaxan [Preservision Areds 2 Softgel] 1 cap PO BID 04/07/22 [History] Gabapentin 300 mg PO TID 10/25/23 [History] Gabapentin [Neurontin] 100 mg PO HS 10/25/23 [History] Losartan [Cozaar] 25 mg PO DAILY 10/25/23 [History] traMADol HCL 50 mg PO TID PRN 10/25/23 [History] Ergocalciferol [Vitamin D2 (1250 Mcg = 07701 Iu)] 1,250 mcg PO WE 03/14/24 [History] Calcium Carb-Vit D 250Mg-125Un [Oscal 250+D 3.125 Mcg (125 Iu)] 1 each PO BID 30 Days #30 tablet 03/17/24 [Rx] Pantoprazole Sodium [Protonix] 20 mg PO DAILY 30 Days #30 tab 03/17/24 [Rx] predniSONE [Deltasone] 60 mg PO DAILY 14 Days #42 tab 03/17/24 [Rx] Follow up Appointment(s)/Referral(s): Betsy Thakkar DO [STAFF PHYSICIAN] - 03/20/24 11:00 am Ramesh Hussein DO [Doctor of Osteopathic Medicine] - 1-2 days Roz Mayberry MD [Primary Care Provider] - 1-2 days Gatito Polanco MD [Medical Doctor] - 1 Week Patient Instructions/Handouts: Temporal Arteritis (DC) Activity/Diet/Wound Care/Special Instructions: Take 60 mg daily for 2 weeks, following that patient needs to decrease prednisone by 10 mg daily every 2 weeks, further tapering will be adjusted by neurology Discharge Disposition: HOME SELF-CARE
== END 2024-03-18 14:50 | disposition home or self-care (01) ==
LOC: EC 14:08 → 6NMEDSUR 17:47
PROVIDERS: ADMIT Hospitalist; ATTEND Hospitalist
DX: R51.9 Headache, unspecified (principal); M54.2 Cervicalgia; R70.0 Elevated erythrocyte sedimentation rate; H53.8 Other visual disturbances; E78.5 Hyperlipidemia, unspecified; H35.30 Unspecified macular degeneration; I10 Essential (primary) hypertension; M81.0 Age-related osteoporosis without current pathological fracture; G62.9 Polyneuropathy, unspecified; M19.90 Unspecified osteoarthritis, unspecified site; Z79.899 Other long term (current) drug therapy; Z96.651 Presence of right artificial knee joint
CPT/HCPCS: 37609; 96376 ×2; 96366 ×2; 96375 ×2; 96365; 99285; 36415; 88305; 80053; 85652; 84443; 85025; 85610; 85730; 86140; 86038; 83036; 70496; 70450; 70498; 70553; G0378 ×5; J2250; J2405; J2003; J3010; J2704; J7512 ×2; Q9967; A9585; J2919 ×4; J2470 ×3

== ENCOUNTER → 2024-04-09 | Outpatient (CLI) | payer MEDICARE ==
[2024-04-09 15:54] LABS: Basophils # (A) 0.01 X 10*3/uL (0.00-0.10); Basophils % (A) 0.1 %; Eosinophils # (A) 0 X 10*3/uL (0.04-0.35); Eosinophils % (A) 0 %; HGB 12.5 g/dL (12.0-15.0); Lymphocytes # (A) 0.61 X 10*3/uL (0.90-5.00); Lymphocytes % (A) 5.7 %; MCH 28.3 pg (27.0-32.0); MCHC 30.5 g/dL (32.0-37.0); MCV 92.8 FL (80.0-97.0); Mean Platelet Volume 10.3 FL (9.5-12.2); Monocytes # (A) 0.34 X 10*3/uL (0.20-1.00); Monocytes % (A) 3.2 %; NRBC Per 100 WBC 0 X 10*3/uL (0.00-0.01); Neutrophils # (A) 9.75 X 10*3/uL (1.80-7.70); Neutrophils % (A) 90.4 %; Platelet Count 256 X 10*3/uL (140-440); RBC 4.42 X 10*6/uL (4.10-5.20); RDW 14.8 % (11.5-14.5); WBC 10.77 X 10*3/uL (4.50-10.00)
[2024-04-09 16:04] LABS: Erythrocyte Sedimentation Rate 20 mm/Hr (0-30)
== END | disposition home or self-care (01) ==
LOC: LABWHC1 11:22
PROVIDERS: ATTEND Family Medicine
DX: R70.0 Elevated erythrocyte sedimentation rate (principal)
CPT/HCPCS: 36415; 85025; 85652

== ENCOUNTER → 2024-04-12 | Outpatient (CLI) | payer MEDICARE, OTHER ==
--- NOTE | 2024-04-13 11:58 | MR ---
EXAMINATION TYPE: MR cervical spine wo con DATE OF EXAM: 04/12/2024 2:09 PM COMPARISON: CT 03/14/2024. CLINICAL INDICATION: Female, 68 years old with history of M54.2 Cervicalgia; R51.9 New onset headache , Neck pain, new onset headache. TECHNIQUE: Multi planar, multi sequence imaging was performed utilizing: T1-weighted, T2-weighted, an d turbo inversion recovery imaging of the cervical spine. IV Contrast: mL (None, if empty) FINDINGS: Alignment: The cervical vertebral bodies have preserved heights. Alignment is within normal limits gi deanna patient positioning. Bones: Bone signal is within normal limits. No abnormal bone marrow edema on inversion recovery seque nces. Cord: The spinal cord is unremarkable with regards to their signal intensity and morphology. Discs: Intervertebral disc signal is maintained. C2-C3: No significant disc pathology. The spinal canal is patent. No neural foraminal stenosis. C3-C4: A disc osteophyte complex is present which minimally narrows the ventral subarachnoid space. Bilateral facet and uncovertebral joint arthropathy are present with mild right neural foraminal alcira nosis. The left neural foramen is patent. C4-C5: A disc osteophyte complex is present which minimally narrows the ventral subarachnoid space. Bilateral facet and uncovertebral joint arthropathy are present with mild right neural foraminal alcira nosis. The left neural foramen is patent. C5-C6: A disc osteophyte complex is present which minimally narrows the ventral subarachnoid space. Bilateral facet and uncovertebral joint arthropathy are present with mild bilateral neural foraminal stenosis. C6-C7: No significant disc pathology. The spinal canal is patent. No neural foraminal stenosis. C7-T1: No significant disc pathology. The spinal canal is patent. No neural foraminal stenosis. Other: None. IMPRESSION: 1. No evidence for disc herniation or significant spinal canal stenosis. 2. Mild disc degeneration with associated osteoarthritic changes. [facility], , 04/13/2024 11:56 AM
== END | disposition home or self-care (01) ==
LOC: RADMRIMAIN 13:27
PROVIDERS: ATTEND Family Medicine
DX: M50.30 Other cervical disc degeneration, unspecified cervical region (principal)
CPT/HCPCS: 72141